=== PATIENT | male | born 1985 | race Asian ===

== ENCOUNTER 2017-01-27 11:33 | Emergency (ER) | payer MEDICAID, OTHER ==
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
--- NOTE | 2017-01-27 13:30 | CT Preliminary Report ---
Exam: CT HEAD W/O IMPRESSION: 1. 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 2. Normal exam. [facility] SITE ID: [id number]
[2017-01-27 13:44] VITALS: BP 115/72
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
--- NOTE | 2017-01-27 13:51 | XRAY Preliminary Report ---
Exam: XR LUMBAR SPINE 2 VIEW IMPRESSION: 1. Old wedging thoracolumbar junction. 2. No acute bony abnormality. 2. Mild degenerative changes L5-S1. [facility] SITE ID: [id number]
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
== END 2017-01-27 15:09 | disposition home or self-care (01) ==
LOC: ED 11:33
DX: S39.012A Strain of muscle, fascia and tendon of lower back, initial encounter (principal); V43.52XA Car driver injured in collision with other type car in traffic accident, initial encounter; Y92.488 Other paved roadways as the place of occurrence of the external cause; F17.200 Nicotine dependence, unspecified, uncomplicated
CPT/HCPCS: 70450; 72100; 99283

== ENCOUNTER 2017-09-30 16:15 | Outpatient (CLI) | payer MEDICAID ==
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
== END 2017-09-30 16:16 | disposition home or self-care (01) ==
LOC: DI.N 16:15
PROVIDERS: ATTEND Nurse Practitioner
DX: M54.42 Lumbago with sciatica, left side (principal); S39.012A Strain of muscle, fascia and tendon of lower back, initial encounter
CPT/HCPCS: 72100

== ENCOUNTER 2017-10-14 21:43 | Emergency (ER) | payer MEDICAID ==
[2017-10-14] MEDS ORDERED: SODIUM CHLORIDE 0.9% 1,000 ML IV ONE ×3 (22:52→23:50)
[2017-10-14 23:05] LABS: BASOPHILS % (AUTO) 0.3 %; EOSINOPHILS % (AUTO) 0.2 %; HGB - HEMOGLOBIN 16.2 g/dL (14.0-18.0); LYMPHOCYTES # (AUTO) 1.3 10^3/uL (1.5-3.5); LYMPHOCYTES % (AUTO) 12.5 %; MEAN CORPUSCULAR HEMOGLOBIN 31.1 pg (27.0-31.0); MEAN CORPUSCULAR HGB CONC 35.3 g/dL (32.0-36.0); MONOCYTES # (AUTO) 0.4 10^3/uL (0.0-1.0); MONOCYTES % (AUTO) 3.9 %; NEUTROPHILS # (AUTO) 8.7 10^3/uL (1.5-6.6); NEUTROPHILS % (AUTO) 83.1 %; PLT - PLATELET COUNT 230 10^3/uL (130-450); RED BLOOD COUNT 5.22 10^6/uL (4.70-6.10); RED CELL DISTRIBUTION WIDTH 12.2 % (12.0-15.0); WHITE BLOOD COUNT 10.5 x10^3/uL (4.8-10.8)
[2017-10-14 23:23] LABS: ALBUMIN 4.2 g/dL (3.2-5.5); ALBUMIN/GLOBULIN RATIO 1.5 (1.0-2.2); BILIRUBIN,TOTAL 2.3 mg/dL (0.2-1.0); MAGNESIUM 2.1 mg/dL (1.7-2.8); PHOSPHORUS 3.3 mg/dL (2.5-4.6)
[2017-10-14] MEDS ORDERED: ONDANSETRON 4 MG/2 ML VIAL IVP STA (23:29)
[2017-10-14] MEDS ORDERED: MORPHINE 10 MG/ML VIAL IVP STA (23:49)
[2017-10-15] MEDS ORDERED: IOPAMIDOL-300 100 ML VIAL ONE (00:26)
[2017-10-15] MEDS ORDERED: IOPAMIDOL-300 100 ML VIAL IVP ONE (00:39)
--- NOTE | 2017-10-15 01:02 | ED Physician Documentation ---
History of Present Illness - Stated complaint Stated Complaint: VOMITTING/SHAKING - Chief complaint Chief Complaint: Abd Pain - History obtained from History obtained from: Patient - Additonal information Additional information: 32-year-old male presents to the emergency department with increasing episodes of lower abdominal pain, nausea, vomiting and diarrhea. The patient's symptoms have progressively worsened over the past 7 days. Symptoms are described as moderate. No relieving factors. No blood in the vomit or stools. No recent travel or antibiotic usage or consumption of of water. No radiation of the symptoms. No relieving factors. No other associated symptoms. No sick contacts Review of Systems Constitutional: reports: Chills, Fatigue. denies: Fever Eyes: denies: Decreased vision Ears: denies: Ear pain Nose: denies: Congestion Throat: denies: Sore throat Cardiac: denies: Chest pain / pressure Respiratory: denies: Dyspnea GI: reports: Abdominal Pain, Nausea, Vomiting, Diarrhea : denies: Dysuria Skin: denies: Rash Musculoskeletal: denies: Neck pain Neurologic: denies: Generalized weakness Immunocompromised: denies: Immunocompromised, Chemotherapy PD PAST MEDICAL HISTORY - Past Surgical History Past Surgical History: Yes HEENT: Tonsil/Adenoidectomy - Present Medications Home Medications: Ambulatory Orders Medication Instructions Recorded Confirmed Amox/Clav 875/125 [Augmentin] 1 each PO Q12H #20 tablet 10/15/17 Famotidine [Pepcid] 20 mg PO BID #30 tablet 10/15/17 Hydrocodone/Acetaminophen 1 - 2 each PO Q6H PRN #14 tablet 10/15/17 [Hydrocodon-Acetaminophen 5-325] Ondansetron Odt [Zofran] 4 mg TL Q6H PRN #10 tablet 10/15/17 - Allergies Allergies/Adverse Reactions: Allergies Allergy/AdvReac Type Severity Reaction Status Date / Time bee venom protein (honey bee) Allergy Anaphylaxis Verified 10/14/17 21:53 - Social History Does the pt smoke?: Yes Smoking Status: Current every day smoker Does the pt drink ETOH?: No Does the pt have substance abuse?: Yes - Immunizations Immunizations are current?: Yes PD ED PE NORMAL - General General: Alert and oriented X 3, No acute distress - HEENT HEENT: Atraumatic, PERRL, EOMI, Ears normal - Neck Neck: Supple, no meningeal sign - Cardiac Cardiac: RRR, Strong equal pulses - Respiratory Respiratory: No respiratory distress, Clear bilaterally - Derm Derm: Normal color - Extremities Extremities: No deformity, No edema - Neuro Neuro: Alert and oriented X 3, Normal speech - Psych Psych: Normal mood PD ED PE EXPANDED - Abdomen Abdomen: Tender to palpation, Generalized/diffuse. No: Rebound, Guarding Results - Vitals Vitals: Vital Signs - 24 hr 10/14/17 10/15/17 10/15/17 21:51 00:05 01:20 Temperature 37.1 C 37.5 C Heart Rate 65 57 L 56 L Respiratory 16 17 16 Rate Blood Pressure 139/88 H 109/53 L 141/77 H O2 Saturation 100 100 99 Oxygen O2 Source Room air - Labs Labs: Laboratory Tests 10/14/17 10/14/17 23:01 23:01 WBC 10.5 RBC 5.22 Hgb 16.2 Hct 46.0 MCV 88.0 MCH 31.1 H MCHC 35.3 RDW 12.2 Plt Count 230 MPV 7.0 L Neut # (Auto) 8.7 H Lymph # (Auto) 1.3 L Greer # (Auto) 0.4 Eos # (Auto) 0.0 Baso # (Auto) 0.0 Absolute Nucleated RBC 0.00 Nucleated RBC % 0.0 Sodium 135 Potassium 4.0 Chloride 99 L Carbon Dioxide 28 Anion Gap 8.0 BUN 18 Creatinine 1.0 Estimated GFR (MDRD) 86 L Glucose 118 H Calcium 9.0 Phosphorus 3.3 Magnesium 2.1 Total Bilirubin 2.3 H AST 19 ALT 13 Alkaline Phosphatase 68 Total Protein 7.0 Albumin 4.2 Globulin 2.8 Albumin/Globulin Ratio 1.5 Lipase 42 - Rads (name of study) CT ABD/PELVIS Radiology: Final report received (1. Hemic: Is collapsed and appears mildly thickened. This may simply represent nondistention. Very mild colitis also possible.) PD MEDICAL DECISION MAKING - ED course ED course: The patient will be treated as an outpatient, I recommended follow-up with primary care for referral to GI. I discussed warning signs and recommended returning to the emergency department immediately for worsening or concerns. The patient's workup does not reveal any acute abnormality that would necessitate admission to the hospital or acute surgical consultation. - Sepsis Event Vital Signs: Vital Signs - 24 hr 10/14/17 10/15/17 10/15/17 21:51 00:05 01:20 Temperature 37.1 C 37.5 C Heart Rate 65 57 L 56 L Respiratory 16 17 16 Rate Blood Pressure 139/88 H 109/53 L 141/77 H O2 Saturation 100 100 99 Oxygen O2 Source Room air Departure - Departure Disposition: 01 Home, Self Care Clinical Impression: Colitis Abdominal pain Qualifiers: Abdominal location: lower abdomen, unspecified Qualified Code(s): R10.30 - Lower abdominal pain, unspecified Condition: Good Instructions: Abdominal Pain Follow-Up: Carol Johnston DNP [Primary Care Provider] - Within 1 week (Please ask your primary care to possibly arrange for an outpatient GI referral) Prescriptions: Amox/Clav 875/125 [Augmentin] 1 each PO Q12H #20 tablet Famotidine [Pepcid] 20 mg PO BID #30 tablet Hydrocodone/Acetaminophen [Hydrocodon-Acetaminophen 5-325] 1 - 2 each PO Q6H PRN #14 tablet PRN Reason: pain Ondansetron Odt [Zofran] 4 mg TL Q6H PRN #10 tablet PRN Reason: Nausea / Vomiting Comments: Please return to the emergency department for worsening symptoms or any concerns
--- NOTE | 2017-10-15 01:11 | CT Report ---
Procedure Date: 10/15/2017 Accession Number: [id number] / [id number] Procedure: CT - Abdomen/Pelvis W/ CPT Code: FULL RESULT: EXAM: CT ABDOMEN AND PELVIS EXAM DATE: 10/15/2017 12:42 AM. CLINICAL HISTORY: Abdominal pain. COMPARISONS: None. TECHNIQUE: Routine helical CT imaging was performed through the abdomen and pelvis. IV contrast: ISOVUE 300 100mL. Enteric contrast: No. Reconstructions: Coronal and sagittal. In accordance with CT protocol optimization, one or more of the following dose reduction techniques were utilized for this exam: automated exposure control, adjustment of mA and/or KV based on patient size, or use of iterative reconstructive technique. FINDINGS: Lung Bases: Unremarkable. Liver: Normal. No masses. Gallbladder/Bile Ducts: Unremarkable. Spleen: Normal. Pancreas: Normal. Adrenal Glands: Normal. Kidneys: Normal. No masses or hydronephrosis. Peritoneal Cavity/Bowel: No bowel obstruction seen. No diverticulitis. Left hemicolon is mostly collapsed and appears mildly thickened. No free air or free fluid. No lymphadenopathy. Appendix is not optimally seen. No evidence of appendicitis. Pelvic Organs: Normal. The bladder and visualized pelvic organs are within normal limits. Vasculature: No aneurysms or other significant abnormality. Bones: No significant abnormality. Other: None. IMPRESSION: 1. Left hemicolon is collapsed and appears mildly thickened. This may simply represent nondistention. Very mild colitis also possible. 2. Appendix is not optimally seen. No evidence of appendicitis. 3. No bowel obstruction seen. 4. No free air or free fluid. [facility]
[2017-10-15] MEDS ORDERED: KETOROLAC 60 MG/2 ML VIAL IVP STA (01:40)
[2017-10-15] MEDS ORDERED: AMOX/CLAV 875 MG/125 MG TABLET PO STA (01:40)
[2017-10-15] MEDS ORDERED: FAMOTIDINE 20 MG in SODIUM CHLORIDE 0.9% 50 ML IV ONE (01:40)
[2017-10-15] MEDS ORDERED: ONDANSETRON 4 MG/2 ML VIAL IVP STA (01:40)
[2017-10-15] MEDS ORDERED: SODIUM CHLORIDE 0.9% 50 ML IV ONE (01:59)
[2017-10-15 02:34] VITALS: BP 115/70
== END 2017-10-15 02:45 | disposition home or self-care (01) ==
LOC: ED 21:43
DX: K52.9 Noninfective gastroenteritis and colitis, unspecified (principal); R10.30 Lower abdominal pain, unspecified; F17.200 Nicotine dependence, unspecified, uncomplicated
CPT/HCPCS: 36415; 74177; 80053; 83690; 83735; 84100; 85025; 96361; 96365; 96375; 96376; 99283; 99284; A9270; J7040; Q9967

== ENCOUNTER 2017-11-03 15:00 | Outpatient (CLI) | payer MEDICAID ==
[2017-11-03 18:53] LABS: BASOPHILS # (AUTO) 0.1 10^3/uL (0.0-0.1); BASOPHILS % (AUTO) 0.4 %; EOSINOPHILS # (AUTO) 0.1 10^3/uL (0.0-0.7); EOSINOPHILS % (AUTO) 0.9 %; HGB - HEMOGLOBIN 16.2 g/dL (14.0-18.0); LYMPHOCYTES # (AUTO) 3.5 10^3/uL (1.5-3.5); LYMPHOCYTES % (AUTO) 28.9 %; MEAN CORPUSCULAR HEMOGLOBIN 30.8 pg (27.0-31.0); MEAN CORPUSCULAR HGB CONC 33.9 g/dL (32.0-36.0); MEAN PLATELET VOLUME 7.6 fL (7.4-11.4); MONOCYTES # (AUTO) 0.9 10^3/uL (0.0-1.0); MONOCYTES % (AUTO) 7.2 %; NEUTROPHILS # (AUTO) 7.6 10^3/uL (1.5-6.6); NEUTROPHILS % (AUTO) 62.6 %; PLT - PLATELET COUNT 253 10^3/uL (130-450); RED BLOOD COUNT 5.26 10^6/uL (4.70-6.10); RED CELL DISTRIBUTION WIDTH 12.9 % (12.0-15.0); WHITE BLOOD COUNT 12.2 x10^3/uL (4.8-10.8)
[2017-11-03 19:52] LABS: ALBUMIN 4.1 g/dL (3.2-5.5); ALBUMIN/GLOBULIN RATIO 1.4 (1.0-2.2); BILIRUBIN,TOTAL 2.2 mg/dL (0.2-1.0); CALCIUM 9.2 mg/dL (8.5-10.3); CREATININE 1.1 mg/dL (0.6-1.2); TOTAL PROTEIN 7.1 g/dL (6.7-8.2)
== END 2017-11-03 15:01 | disposition home or self-care (01) ==
LOC: LAB.N 15:00
PROVIDERS: ATTEND Nurse Practitioner
DX: R63.4 Abnormal weight loss (principal); E86.0 Dehydration; K52.9 Noninfective gastroenteritis and colitis, unspecified
CPT/HCPCS: 36415; 80053; 85025

== ENCOUNTER 2017-12-20 16:19 | Emergency (ER) | payer MEDICAID ==
[2017-12-20] MEDS ORDERED: HYOSCYAMINE SL 0.125 MG TABLET SL STA (17:21)
[2017-12-20] MEDS ORDERED: ONDANSETRON 4 MG/2 ML VIAL IVP STA (17:21)
[2017-12-20] MEDS ORDERED: MORPHINE 2 MG/ML CARPUJECT IVP STA (17:21)
[2017-12-20] MEDS ORDERED: SODIUM CHLORIDE 0.9% 1,000 ML IV ONE (17:21)
[2017-12-20 17:26] LABS: BASOPHILS # (AUTO) 0.1 10^3/uL (0.0-0.1); BASOPHILS % (AUTO) 0.6 %; EOSINOPHILS % (AUTO) 0.4 %; HGB - HEMOGLOBIN 17.6 g/dL (14.0-18.0); LYMPHOCYTES # (AUTO) 1.1 10^3/uL (1.5-3.5); LYMPHOCYTES % (AUTO) 9.1 %; MEAN CORPUSCULAR HEMOGLOBIN 31.3 pg (27.0-31.0); MEAN CORPUSCULAR HGB CONC 34.8 g/dL (32.0-36.0); MEAN PLATELET VOLUME 7.3 fL (7.4-11.4); MONOCYTES # (AUTO) 0.3 10^3/uL (0.0-1.0); MONOCYTES % (AUTO) 2.7 %; NEUTROPHILS # (AUTO) 10.3 10^3/uL (1.5-6.6); NEUTROPHILS % (AUTO) 87.2 %; PLT - PLATELET COUNT 262 10^3/uL (130-450); RED BLOOD COUNT 5.62 10^6/uL (4.70-6.10); RED CELL DISTRIBUTION WIDTH 12.8 % (12.0-15.0); WHITE BLOOD COUNT 11.8 x10^3/uL (4.8-10.8)
[2017-12-20 17:41] LABS: ALBUMIN 5.1 g/dL (3.2-5.5); ALBUMIN/GLOBULIN RATIO 1.8 (1.0-2.2); BILIRUBIN,TOTAL 2.6 mg/dL (0.2-1.0); CALCIUM 9.6 mg/dL (8.5-10.3); CREATININE 1.1 mg/dL (0.6-1.2); TOTAL PROTEIN 7.9 g/dL (6.7-8.2)
[2017-12-20] MEDS ORDERED: KETOROLAC 60 MG/2 ML VIAL IVP STA (17:43)
--- NOTE | 2017-12-20 18:21 | ED Physician Documentation ---
PD HPI CHEST PAIN - Stated complaint Stated Complaint: VOMITING - Chief complaint Chief Complaint: Abd Pain - History obtained from History obtained from: Patient, Family - History of Present Illness Timing - details: Gradual onset Pain level max: 8 Pain level now: 8 Quality: Aching, Pain Associated symptoms: No: Shortness of air, Diaphoresis, General Weakness Recently seen: Not recently seen - Additional information Additional information: Patient is a 32 year old male who presents to the emergency room with c/o significant abdominal pain. States that he has epigastric pain. Was diagnosed with H.pylori from his endoscopy 3 weeks ago and has not started treatment for it yet. States that he has vomiting and diarrhea. His states that he is "not acting like his normal self". States he has a colonoscopy scheduled on 12/24/2017. Review of Systems Ten Systems: 10 systems reviewed and negative Constitutional: denies: Fever, Chills Ears: denies: Ear pain Nose: denies: Rhinorrhea / runny nose, Congestion Throat: denies: Sore throat Cardiac: denies: Chest pain / pressure Respiratory: denies: Cough GI: reports: Abdominal Pain, Nausea, Vomiting. denies: Constipation, Diarrhea, Hematemesis, Bloody / black stool Skin: denies: Rash Musculoskeletal: denies: Neck pain, Back pain Neurologic: denies: Focal weakness, Numbness, Headache PD PAST MEDICAL HISTORY - Past Medical History Past Medical History: Yes Cardiovascular: None Respiratory: None Neuro: None Endocrine/Autoimmune: None GI: GERD, Ulcerative colitis : None HEENT: None Psych: None Musculoskeletal: None Derm: None - Past Surgical History Past Surgical History: Yes HEENT: Tonsil/Adenoidectomy - Present Medications Home Medications: Ambulatory Orders Medication Instructions Recorded Confirmed Famotidine [Pepcid] 20 mg PO BID #30 tablet 10/15/17 11/14/17 Ciprofloxacin HCl [Cipro] 500 mg ORAL BID 11/14/17 11/14/17 Ondansetron [Ondansetron Odt] 8 mg ORAL Q8H PRN 11/14/17 11/14/17 Sucralfate 1 g ORAL QID 11/14/17 11/14/17 Hydrocodone/Acetaminophen 1 - 2 each PO Q6H PRN #14 tablet 12/20/17 [Hydrocodon-Acetaminophen 5-325] Hyoscyamine Sulfate [Levsin-Sl] 0.125 mg SL Q6H PRN #10 tab.subl 12/20/17 Promethazine [Phenergan] 25 mg PO Q6H PRN #10 tab 12/20/17 - Allergies Allergies/Adverse Reactions: Allergies Allergy/AdvReac Type Severity Reaction Status Date / Time bee venom protein (honey bee) Allergy Anaphylaxis Verified 11/14/17 14:40 - Social History Does the pt smoke?: Yes Smoking Status: Current every day smoker Does the pt drink ETOH?: No Does the pt have substance abuse?: Yes - Immunizations Immunizations are current?: Yes - POLST Patient has POLST: No PD ED PE NORMAL - Vitals Vital signs reviewed: Yes - General General: Alert and oriented X 3, No acute distress, Well developed/nourished - HEENT HEENT: Atraumatic, PERRL - Neck Neck: Supple, no meningeal sign - Cardiac Cardiac: RRR, Strong equal pulses - Respiratory Respiratory: No respiratory distress, Clear bilaterally - Abdomen Abdomen: Soft, Non distended, Other (Tender to palpation epigastric without peritoneal signs) - Back Back: No spinal TTP - Derm Derm: Warm and dry - Neuro Neuro: Alert and oriented X 3, Normal speech - Psych Psych: Normal mood, Normal affect Results - Vitals Vitals: Vital Signs - 24 hr 12/20/17 12/20/17 12/20/17 16:26 19:08 19:43 Temperature 36.3 C L 37.1 C Heart Rate 59 L 52 L 56 L Respiratory 18 18 16 Rate Blood Pressure 129/90 H 116/70 127/85 H O2 Saturation 100 100 97 12/20/17 12/20/17 20:27 20:55 Temperature 36.5 C Heart Rate 74 59 L Respiratory 14 18 Rate Blood Pressure 116/81 H 125/57 L O2 Saturation 99 98 Oxygen O2 Source Room air - Labs Labs: Laboratory Tests 12/20/17 12/20/17 17:15 17:15 WBC 11.8 H RBC 5.62 Hgb 17.6 Hct 50.6 MCV 90.0 MCH 31.3 H MCHC 34.8 RDW 12.8 Plt Count 262 MPV 7.3 L Neut # (Auto) 10.3 H Lymph # (Auto) 1.1 L Dare # (Auto) 0.3 Eos # (Auto) 0.0 Baso # (Auto) 0.1 Absolute Nucleated RBC 0.01 Nucleated RBC % 0.1 Sodium 141 Potassium 4.5 Chloride 105 Carbon Dioxide 28 Anion Gap 8.0 BUN 13 Creatinine 1.1 Estimated GFR (MDRD) 77 L Glucose 130 H Calcium 9.6 Total Bilirubin 2.6 H AST 19 ALT 19 Alkaline Phosphatase 74 Total Protein 7.9 Albumin 5.1 Globulin 2.8 Albumin/Globulin Ratio 1.8 Lipase 30 PD MEDICAL DECISION MAKING - ED course Complexity details: reviewed results, re-evaluated patient, considered differential, d/w patient, d/w family ED course: Patient is a 32-year-old male who presents to the emergency department with ongoing abdominal pain. Feels better after pain medication. He also has had vomiting feels better after IV fluids and Zofran. Also given a dose of Phenergan. He would like to go home at this time. Will prescribe pain medication and nausea medication for home. He has a colonoscopy scheduled on Friday with his GI doctor. We will have him follow-up closely with his doctor for further care. Also recommend he start the H. pylori treatment as prescribed by his GI doctor. Abdomen is soft, nontender nondistended on serial exam. Tolerating p.o. without difficulty. Patient and family counseled regarding signs and symptoms for which I believe and urgent re-evaluation would be necessary. Patient with good understanding of and agreement to plan and is comfortable going home at this time This document was made in part using voice recognition software. While efforts are made to proofread this document, sound alike and grammatical errors may occur. - Sepsis Event Vital Signs: Vital Signs - 24 hr 12/20/17 12/20/17 12/20/17 16:26 19:08 19:43 Temperature 36.3 C L 37.1 C Heart Rate 59 L 52 L 56 L Respiratory 18 18 16 Rate Blood Pressure 129/90 H 116/70 127/85 H O2 Saturation 100 100 97 12/20/17 12/20/17 20:27 20:55 Temperature 36.5 C Heart Rate 74 59 L Respiratory 14 18 Rate Blood Pressure 116/81 H 125/57 L O2 Saturation 99 98 Oxygen O2 Source Room air Departure - Departure Disposition: 01 Home, Self Care Clinical Impression: Abdominal pain Qualifiers: Abdominal location: generalized Qualified Code(s): R10.84 - Generalized abdominal pain Vomiting Qualifiers: Vomiting type: unspecified Vomiting Intractability: non-intractable Nausea presence: with nausea Qualified Code(s): R11.2 - Nausea with vomiting, unspecified Condition: Good Instructions: ED Abdominal Pain Unkn Cause Follow-Up: Carol Johnston DNP [Primary Care Provider] - Within 1 week Prescriptions: Hydrocodone/Acetaminophen [Hydrocodon-Acetaminophen 5-325] 1 - 2 each PO Q6H PRN #14 tablet PRN Reason: pain Hyoscyamine Sulfate [Levsin-Sl] 0.125 mg SL Q6H PRN #10 tab.subl PRN Reason: Abdominal Pain Promethazine [Phenergan] 25 mg PO Q6H PRN #10 tab PRN Reason: Nausea / Vomiting Comments: Return if you worsen. Follow-up with your doctor this week for further care. It is importantly follow-up for your colonoscopy. Your laboratory testing is normal today. Do not drink alcohol or drive while on narcotic pain medicine. Note that many narcotic pain relievers also contain tylenol/acetaminophen. Please ensure that your total dose of acetaminophen from all sources does not exceed 3 grams (3000mg) per day. You may constipated on this medication, take a stool softener such as "Colace" twice a day while you are on it. Also recommend a nbwq-mxw-hfjkjml laxative such as senna or MiraLAX any day that you do not have a bowel movement. If you received narcotic pain medication in the emergency department, do not drive or operate machinery for the next 24 hours. Discharge Date/Time: 12/20/17 20:55
[2017-12-20] MEDS ORDERED: HYDROcod/ACETAM 5/325 MG TABLET PO STA (19:28)
[2017-12-20] MEDS ORDERED: PROMETHAZINE INJ 25 MG in SODIUM CHLORIDE 0.9% 50 ML IV STA (19:47)
[2017-12-20 20:56] VITALS: BP 125/57
== END 2017-12-20 20:55 | disposition home or self-care (01) ==
LOC: ED 16:19
DX: R10.84 Generalized abdominal pain (principal); R11.2 Nausea with vomiting, unspecified; F17.200 Nicotine dependence, unspecified, uncomplicated
CPT/HCPCS: 36415; 80053; 83690; 85025; 96361; 96365; 96375; 99283; A9270; J7040

== ENCOUNTER 2018-04-21 15:08 | Emergency (ER) | payer MEDICAID ==
[2018-04-21] MEDS ORDERED: ONDANSETRON 4 MG/2 ML VIAL IVP STA (15:52)
[2018-04-21] MEDS ORDERED: SODIUM CHLORIDE 0.9% 2,000 ML IV ONE (15:52)
[2018-04-21] MEDS ORDERED: MAG HYDROX/AL HYDROX/SIMETH 30 ML UDC PO STA (15:53)
[2018-04-21 16:03] LABS: BASOPHILS % (AUTO) 0.2 %; EOSINOPHILS # (AUTO) 0.1 10^3/uL (0.0-0.7); EOSINOPHILS % (AUTO) 0.3 %; HGB - HEMOGLOBIN 18.4 g/dL (14.0-18.0); LYMPHOCYTES # (AUTO) 2.1 10^3/uL (1.5-3.5); LYMPHOCYTES % (AUTO) 10.6 %; MEAN CORPUSCULAR HEMOGLOBIN 30.4 pg (27.0-31.0); MEAN CORPUSCULAR HGB CONC 34.4 g/dL (32.0-36.0); MEAN CORPUSCULAR VOLUME 88.6 fL (80.0-94.0); MEAN PLATELET VOLUME 7.1 fL (7.4-11.4); MONOCYTES # (AUTO) 1.6 10^3/uL (0.0-1.0); MONOCYTES % (AUTO) 7.9 %; NEUTROPHILS # (AUTO) 16.2 10^3/uL (1.5-6.6); PLT - PLATELET COUNT 254 10^3/uL (130-450); RED BLOOD COUNT 6.05 10^6/uL (4.70-6.10); RED CELL DISTRIBUTION WIDTH 12.5 % (12.0-15.0); WHITE BLOOD COUNT 19.9 x10^3/uL (4.8-10.8)
[2018-04-21 16:14] LABS: ALBUMIN 4.7 g/dL (3.2-5.5); ALBUMIN/GLOBULIN RATIO 1.6 (1.0-2.2); BILIRUBIN,TOTAL 2.6 mg/dL (0.2-1.0); CALCIUM 9.5 mg/dL (8.5-10.3); CREATININE 1.1 mg/dL (0.6-1.2); TOTAL PROTEIN 7.6 g/dL (6.7-8.2)
[2018-04-21] MEDS ORDERED: IOVERSOL 320 100 ML VIAL IVP ONE ×2 (16:27→16:43)
--- NOTE | 2018-04-21 17:07 | CT Report ---
Reason: ABd pain Procedure Date: 04/21/2018 Accession Number: [id number] / [id number] Procedure: CT - Abdomen/Pelvis W/ CPT Code: FULL RESULT: EXAM: CT ABDOMEN AND PELVIS EXAM DATE: 04/21/2018 04:45 PM. CLINICAL HISTORY: ABd pain. COMPARISONS: ABDOMEN/PELVIS W/ 10/15/2017 12:30 AM. TECHNIQUE: Routine helical CT imaging was performed through the abdomen and pelvis. IV contrast: [id number] 90ML. Enteric contrast: No. Reconstructions: Coronal and sagittal. In accordance with CT protocol optimization, one or more of the following dose reduction techniques were utilized for this exam: automated exposure control, adjustment of mA and/or KV based on patient size, or use of iterative reconstructive technique. FINDINGS: Lung Bases: Unremarkable. Liver: Small cyst or hemangioma. Otherwise unremarkable. Gallbladder/Bile Ducts: Unremarkable. Spleen: Normal. Pancreas: Normal. Adrenal Glands: Normal. Kidneys: High density material in the left proximal ureter not present on previous exam, most likely early excretion of contrast. Otherwise unremarkable. No hydronephrosis. Peritoneal Cavity/Bowel: Normal. No free fluid, free air or adenopathy. No masses or acute inflammatory process. Unremarkable region of the appendix. Pelvic Organs: Normal. The bladder and visualized pelvic organs are within normal limits. Vasculature: No aneurysms or other significant abnormality. Bones: Sacralization of L5. Other: None. IMPRESSION: Incidental findings as noted. No acute disease. [facility]
[2018-04-21 18:01] VITALS: BP 126/70
--- NOTE | 2018-04-21 19:01 | ED Physician Documentation ---
History of Present Illness - Stated complaint Stated Complaint: DEHYDRATION - Chief complaint Chief Complaint: Abd Pain - History obtained from History obtained from: Patient - History of Present Illness Timing: How many weeks ago (6) Pain level max: 5 Pain level now: 3 Severity Comments: Mild Quality: dull Radiates to: non- Improved by: nothing Worsened by: nothing Associated symptoms: Nausea and vomiting Review of Systems Ten Systems: 10 systems reviewed and negative Constitutional: reports: Reviewed and negative Eyes: reports: Reviewed and negative Ears: reports: Reviewed and negative Nose: reports: Reviewed and negative Throat: reports: Reviewed and negative Cardiac: reports: Reviewed and negative Respiratory: reports: Reviewed and negative GI: reports: Reviewed and negative : reports: Reviewed and negative Skin: reports: Reviewed and negative Musculoskeletal: reports: Reviewed and negative Neurologic: reports: Reviewed and negative Psychiatric: reports: Reviewed and negative Endocrine: reports: Reviewed and negative Immunocompromised: reports: Reviewed and negative PD PAST MEDICAL HISTORY - Past Medical History Cardiovascular: None Respiratory: None Neuro: None Endocrine/Autoimmune: None GI: GERD, Ulcerative colitis, Other : None HEENT: None Psych: None Musculoskeletal: None Derm: None Other Past Medical History: H. [place] - Past Surgical History Past Surgical History: Yes HEENT: Tonsil/Adenoidectomy Other past surgical history: Reviewed and not pertinent - Present Medications Home Medications: Ambulatory Orders Medication Instructions Recorded Confirmed Famotidine [Pepcid] 20 mg PO BID #30 tablet 10/15/17 11/14/17 Ciprofloxacin HCl [Cipro] 500 mg ORAL BID 11/14/17 11/14/17 Ondansetron [Ondansetron Odt] 8 mg ORAL Q8H PRN 11/14/17 11/14/17 Sucralfate 1 g ORAL QID 11/14/17 11/14/17 Hydrocodone/Acetaminophen 1 - 2 each PO Q6H PRN #14 tablet 12/20/17 [Hydrocodon-Acetaminophen 5-325] Hyoscyamine Sulfate [Levsin-Sl] 0.125 mg SL Q6H PRN #10 tab.subl 12/20/17 Promethazine [Phenergan] 25 mg PO Q6H PRN #10 tab 12/20/17 Ondansetron Odt [Zofran] 4 mg TL Q6H PRN #20 tablet 04/21/18 - Allergies Allergies/Adverse Reactions: Allergies Allergy/AdvReac Type Severity Reaction Status Date / Time bee venom protein (honey bee) Allergy Anaphylaxis Verified 04/21/18 15:16 - Living Situation Living Situation: reports: With family Living Arrangement: reports: At home - Social History Does the pt smoke?: Yes Smoking Status: Current every day smoker Does the pt drink ETOH?: No Does the pt have substance abuse?: Yes - Family History Family history: reports: Other (Reviewed and not pertinent) - Immunizations Immunizations are current?: Yes - POLST Patient has POLST: No PD ED PE NORMAL - Vitals Vital signs reviewed: Yes - General General: Alert and oriented X 3, No acute distress - HEENT HEENT: PERRL - Neck Neck: Supple, no meningeal sign - Cardiac Cardiac: RRR, No murmur - Respiratory Respiratory: Clear bilaterally - Abdomen Abdomen: Normal bowel sounds, Soft, Non tender, Non distended - Derm Derm: Warm and dry - Extremities Extremities: No deformity - Neuro Neuro: Alert and oriented X 3 - Psych Psych: Normal mood, Normal affect Results - Vitals Vitals: Vital Signs - 24 hr 04/21/18 04/21/18 15:11 17:59 Temperature 36.9 C Heart Rate 86 57 L Respiratory 15 12 Rate Blood Pressure 129/78 126/70 O2 Saturation 99 99 Oxygen O2 Source Room air - Labs Labs: Laboratory Tests 04/21/18 04/21/18 15:50 15:50 WBC 19.9 H RBC 6.05 Hgb 18.4 H Hct 53.6 H MCV 88.6 MCH 30.4 MCHC 34.4 RDW 12.5 Plt Count 254 MPV 7.1 L Neut # (Auto) 16.2 H Lymph # (Auto) 2.1 [place] # (Auto) 1.6 H Eos # (Auto) 0.1 Baso # (Auto) 0.0 Absolute Nucleated RBC 0.04 Nucleated RBC % 0.2 Sodium 134 L Potassium 3.5 Chloride 95 L Carbon Dioxide 28 Anion Gap 11.0 BUN 26 H Creatinine 1.1 Estimated GFR (MDRD) 77 L Glucose 105 H Calcium 9.5 Total Bilirubin 2.6 H AST 16 ALT 14 Alkaline Phosphatase 73 Total Protein 7.6 Albumin 4.7 Globulin 2.9 Albumin/Globulin Ratio 1.6 Lipase 41 - Rads (name of study) CT Abd Pelvis w contrast Radiology: Final report received (No acute findings) PD MEDICAL DECISION MAKING - ED course Complexity details: reviewed old records, reviewed results, re-evaluated patient, considered differential, d/w patient, d/w family ED course: 32-year-old male with abdominal pain, nausea, vomiting, dehydration. Labs consistent with dehydration. Patient given 1 L IV fluids and refused second liter of IV fluids. Patient discharged with nausea medication and will follow- up with PCP as scheduled. No acute cause of patient's dehydration is currently identified. Departure - Departure Disposition: 01 Home, Self Care Clinical Impression: Dehydration Vomiting Qualifiers: Vomiting type: unspecified Vomiting Intractability: non-intractable Nausea presence: with nausea Qualified Code(s): R11.2 - Nausea with vomiting, unspecified Condition: Good Instructions: ED Dehydration Ch, ED Nausea Vomiting Follow-Up: Carol Johnston DNP [Primary Care Provider] - Prescriptions: Ondansetron Odt [Zofran] 4 mg TL Q6H PRN #20 tablet PRN Reason: Nausea / Vomiting Comments: Follow up with your PCP within 24-48 hours. Return with worsening symptoms. Hydrate w water and sports drinks. Discharge Date/Time: 04/21/18 19:11
== END 2018-04-21 19:11 | disposition home or self-care (01) ==
LOC: ED 15:08
DX: E86.0 Dehydration (principal); R11.2 Nausea with vomiting, unspecified; F17.200 Nicotine dependence, unspecified, uncomplicated
CPT/HCPCS: 36415; 74177; 80053; 83690; 85025; 96361; 96374; 99283; 99284; A9270; Q9967

== ENCOUNTER 2018-04-23 08:30 | Outpatient (CLI) | payer MEDICAID ==
[2018-04-23 19:40] LABS: H. PYLORIS ANTIGEN STL NEGATIVE (Negative)
== END 2018-04-23 08:31 | disposition home or self-care (01) ==
LOC: LAB.R 08:30
PROVIDERS: ATTEND Nurse Practitioner
DX: R53.83 Other fatigue (principal); R63.4 Abnormal weight loss; E86.0 Dehydration; R19.7 Diarrhea, unspecified
CPT/HCPCS: 87045; 87046; 87177; 87209; 87338; 87493

== ENCOUNTER 2018-09-09 08:00 | Outpatient (CLI) | payer MEDICAID | END 2018-09-09 23:59 | disposition home or self-care (01) | LOC: LAB.R 08:00 | PROVIDERS: ATTEND Physician Assistant Medical | DX: R10.9 Unspecified abdominal pain (principal) | CPT/HCPCS: 83013 ==

== ENCOUNTER 2018-09-18 08:00 | Outpatient (CLI) | payer MEDICAID ==
[2018-09-18 14:04] LABS: BASOPHILS % (AUTO) 0.4 %; EOSINOPHILS # (AUTO) 0.1 10^3/uL (0.0-0.7); EOSINOPHILS % (AUTO) 1.3 %; HGB - HEMOGLOBIN 15.8 g/dL (14.0-18.0); LYMPHOCYTES % (AUTO) 29.9 %; MEAN CORPUSCULAR HEMOGLOBIN 30.6 pg (27.0-31.0); MEAN CORPUSCULAR HGB CONC 33.9 g/dL (32.0-36.0); MEAN CORPUSCULAR VOLUME 90.3 fL (80.0-94.0); MEAN PLATELET VOLUME 7.9 fL (7.4-11.4); MONOCYTES # (AUTO) 0.5 10^3/uL (0.0-1.0); MONOCYTES % (AUTO) 7.9 %; NEUTROPHILS # (AUTO) 4.1 10^3/uL (1.5-6.6); NEUTROPHILS % (AUTO) 60.5 %; PLT - PLATELET COUNT 215 10^3/uL (130-450); RED BLOOD COUNT 5.15 10^6/uL (4.70-6.10); RED CELL DISTRIBUTION WIDTH 13.2 % (12.0-15.0); WHITE BLOOD COUNT 6.7 x10^3/uL (4.8-10.8)
[2018-09-18 14:34] LABS: ALBUMIN 4.3 g/dL (3.2-5.5); BILIRUBIN,TOTAL 1.1 mg/dL (0.2-1.0); CALCIUM 9.1 mg/dL (8.5-10.3); CREATININE 0.8 mg/dL (0.6-1.2); TOTAL PROTEIN 6.5 g/dL (6.7-8.2)
[2018-09-18 19:53] LABS: HB2 TOTAL 16.5 g/dL; HEMOGLOBIN A1C 0.56 g/dL; HEMOGLOBIN A1C % 5.3 % (4.6-6.2)
== END 2018-09-18 23:59 | disposition home or self-care (01) ==
LOC: LAB.N 08:00
PROVIDERS: ATTEND Physician Assistant Medical
DX: R10.9 Unspecified abdominal pain (principal)
CPT/HCPCS: 36415; 80053; 81599; 82150; 83036; 83690; 84443; 85025

== ENCOUNTER 2019-05-24 10:37 | Emergency (ER) | payer MEDICAID ==
[2019-05-24 12:58] LABS: BASOPHILS % (AUTO) 0.2 %; HGB - HEMOGLOBIN 19.9 g/dL (14.0-18.0); LYMPHOCYTES # (AUTO) 1.2 10^3/uL (1.5-3.5); LYMPHOCYTES % (AUTO) 7.7 %; MEAN CORPUSCULAR HEMOGLOBIN 31.2 pg (27.0-31.0); MEAN CORPUSCULAR HGB CONC 34.8 g/dL (32.0-36.0); MEAN CORPUSCULAR VOLUME 89.7 fL (80.0-94.0); MEAN PLATELET VOLUME 9.1 fL (7.4-11.4); MONOCYTES # (AUTO) 0.6 10^3/uL (0.0-1.0); MONOCYTES % (AUTO) 4.2 %; NEUTROPHILS % (AUTO) 87.3 %; PLT - PLATELET COUNT 254 10^3/uL (130-450); RED BLOOD COUNT 6.38 10^6/uL (4.70-6.10); RED CELL DISTRIBUTION WIDTH 12.5 % (12.0-15.0); WHITE BLOOD COUNT 14.9 x10^3/uL (4.8-10.8)
[2019-05-24 13:13] LABS: ALBUMIN 5.4 g/dL (3.2-5.5); ALBUMIN/GLOBULIN RATIO 1.5 (1.0-2.2); BILIRUBIN,TOTAL 2.6 mg/dL (0.2-1.0); CALCIUM 10.7 mg/dL (8.5-10.3); CREATININE 1.6 mg/dL (0.6-1.2); TOTAL PROTEIN 9.1 g/dL (6.7-8.2)
[2019-05-24] MEDS ORDERED: SODIUM CHLORIDE 0.9% 1,000 ML IV ONE ×2 (14:05→16:02)
[2019-05-24] MEDS ORDERED: ONDANSETRON 4 MG/2 ML VIAL IVP STA (14:05)
--- NOTE | 2019-05-24 14:07 | ED Physician Documentation ---
PD HPI NVD - Stated complaint Stated Complaint: VOMTING/PX - Chief complaint Chief Complaint: Abd Pain - History obtained from History obtained from: Patient, Family - History of Present Illness Timing - onset: How many days ago (3) Timing - duration: Days (3) Timing - details: Gradual onset, Still present Associated symptoms: Abdominal pain Contributing factors: Other (unknown) Improved by: Vomiting Worsened by: Eating Similar symptoms before: Diagnosis (gastroenteritis) Recently seen: Not recently seen Review of Systems Constitutional: denies: Fever Eyes: denies: Decreased vision Ears: denies: Ear pain Nose: denies: Congestion Throat: denies: Sore throat Cardiac: denies: Chest pain / pressure, Palpitations Respiratory: denies: Dyspnea, Cough GI: reports: Abdominal Pain, Nausea, Vomiting : denies: Dysuria, Frequency Skin: denies: Rash PD PAST MEDICAL HISTORY - Past Medical History Past Medical History: Yes Cardiovascular: None Respiratory: None Neuro: None Endocrine/Autoimmune: None GI: GERD, Ulcerative colitis, Other : None HEENT: None Psych: None Musculoskeletal: None Derm: None - Past Surgical History Past Surgical History: Yes HEENT: Tonsil/Adenoidectomy - Present Medications Home Medications: Ambulatory Orders Medication Instructions Recorded Confirmed Famotidine [Pepcid] 20 mg PO BID #30 tablet 10/15/17 11/14/17 Ciprofloxacin HCl [Cipro] 500 mg ORAL BID 11/14/17 11/14/17 Ondansetron [Ondansetron Odt] 8 mg ORAL Q8H PRN 11/14/17 11/14/17 Sucralfate 1 g ORAL QID 11/14/17 11/14/17 Hydrocodone/Acetaminophen 1 - 2 each PO Q6H PRN #14 tablet 12/20/17 [Hydrocodon-Acetaminophen 5-325] Hyoscyamine Sulfate [Levsin-Sl] 0.125 mg SL Q6H PRN #10 tab.subl 12/20/17 Promethazine [Phenergan] 25 mg PO Q6H PRN #10 tab 12/20/17 Ondansetron Odt [Zofran] 4 mg TL Q6H PRN #20 tablet 04/21/18 Ondansetron Odt [Zofran] 4 mg TL Q6H PRN #10 tablet 05/24/19 - Allergies Allergies/Adverse Reactions: Allergies Allergy/AdvReac Type Severity Reaction Status Date / Time bee venom protein (honey bee) Allergy Anaphylaxis Verified 04/21/18 15:16 - Social History Does the pt smoke?: Yes Smoking Status: Current every day smoker Does the pt drink ETOH?: No Does the pt have substance abuse?: No - Immunizations Immunizations are current?: Yes - POLST Patient has POLST: No PD ED PE NORMAL - Vitals Vital signs reviewed: Yes (Hypertensive) - General General: Alert and oriented X 3, No acute distress, Well developed/nourished - HEENT HEENT: Atraumatic, PERRL, EOMI - Neck Neck: Supple, no meningeal sign, No bony TTP - Cardiac Cardiac: No murmur, Other (tach to 120 sitting up) - Respiratory Respiratory: No respiratory distress, Clear bilaterally - Abdomen Abdomen: Normal bowel sounds, Soft, Non distended, No organomegaly, Other (mild general tenderness) - Back Back: No CVA TTP, No spinal TTP - Derm Derm: Normal color, Warm and dry, No rash - Extremities Extremities: No deformity, Normal ROM s pain, No edema, No calf tenderness / cord - Neuro Neuro: Alert and oriented X 3, raw hide trimmer 2-12 intact, No motor deficit, No sensory deficit, Normal speech Eye Opening: Spontaneous Motor: Obeys Commands Verbal: Oriented GCS Score: 15 - Psych Psych: Normal mood, Normal affect Results - Vitals Vitals: Vital Signs - 24 hr 05/24/19 05/24/19 05/24/19 10:51 13:38 16:30 Temperature 36.5 C 36.9 C 37.2 C Heart Rate 90 92 78 Respiratory 14 18 18 Rate Blood Pressure 136/100 H 136/85 H 112/77 O2 Saturation 100 98 97 Oxygen O2 Source Room air - Labs Labs: Laboratory Tests 05/24/19 05/24/19 05/24/19 12:52 12:52 16:38 WBC 14.9 H RBC 6.38 H Hgb 19.9 H Hct 57.2 H MCV 89.7 MCH 31.2 H MCHC 34.8 RDW 12.5 Plt Count 254 MPV 9.1 Neut # (Auto) 13.0 H Lymph # (Auto) 1.2 L [place] # (Auto) 0.6 Eos # (Auto) 0.0 Baso # (Auto) 0.0 Absolute Nucleated RBC 0.04 Nucleated RBC % 0.3 Sodium 133 L Potassium 4.4 Chloride 94 L Carbon Dioxide 28 Anion Gap 11.0 BUN 48 H Creatinine 1.6 H Estimated GFR (MDRD) 50 L Glucose 147 H Calcium 10.7 H Total Bilirubin 2.6 H AST 18 ALT 17 Alkaline Phosphatase 82 Total Protein 9.1 H Albumin 5.4 Globulin 3.7 Albumin/Globulin Ratio 1.5 Lipase 25 Urine Color YELLOW Urine Clarity CLEAR Urine pH 6.0 Ur Specific [place] 1.020 Urine Protein TRACE Urine Glucose (UA) NEGATIVE Urine Ketones NEGATIVE Urine Occult Blood NEGATIVE Urine Nitrite NEGATIVE Urine Bilirubin NEGATIVE Urine Urobilinogen 0.2 (NORMAL) Ur Leukocyte Esterase NEGATIVE Ur Microscopic Review NOT INDICATED Urine Culture Comments NOT INDICATED PD MEDICAL DECISION MAKING - ED course Complexity details: reviewed old records, reviewed results, re-evaluated patient, considered differential, d/w patient, d/w family ED course: 33 y/o male with acute gastroenteritis is profoundly dehydrated and IV saline is begun. The patient has marked improvement with 2 L of saline and 4 mg of Zofran intravenously. Departure - Departure Disposition: 01 Home, Self Care Clinical Impression: Dehydration, Gastroenteritis Condition: Stable Instructions: ED Dehydration, ED Gastroenteritis Viral Follow-Up: Sunday Avila PA-C [Primary Care Provider] - Prescriptions: Ondansetron Odt [Zofran] 4 mg TL Q6H PRN #10 tablet PRN Reason: Nausea / Vomiting
[2019-05-24 16:31] VITALS: BP 112/77
[2019-05-24 16:49] LABS: BILIRUBIN,URINE NEGATIVE (NEGATIVE); GLUCOSE, URINE (UA) NEGATIVE (NEGATIVE); KETONES,URINE (UA) NEGATIVE (NEGATIVE); LEUKOCYTE ESTERASE, URINE NEGATIVE (NEGATIVE); NITRITE,URINE NEGATIVE (NEGATIVE); OCCULT BLOOD,URINE NEGATIVE (NEGATIVE); PROTEIN,URINE TRACE mg/dL (NEGATIVE); UROBILINOGEN,URINE 0.2 (NORMAL) E.U./dL (NORMAL)
[2019-05-24 16:53] LABS: CLARITY,URINE CLEAR (CLEAR)
== END 2019-05-24 17:39 | disposition home or self-care (01) ==
LOC: ED 10:37
DX: K52.9 Noninfective gastroenteritis and colitis, unspecified (principal); E86.0 Dehydration; K21.9 Gastro-esophageal reflux disease without esophagitis; K51.90 Ulcerative colitis, unspecified, without complications; F17.200 Nicotine dependence, unspecified, uncomplicated
CPT/HCPCS: 36415; 80053; 81001; 81003; 83690; 85025; 87086; 96361; 96374; 99284

== ENCOUNTER 2019-09-22 23:00 | Emergency (ER) | payer MEDICAID ==
--- NOTE | 2019-09-22 23:24 | ED Physician Documentation ---
History of Present Illness - Stated complaint Stated Complaint: VOMITING/ABD & BACK PX - Chief complaint Chief Complaint: Abd Pain - History obtained from History obtained from: Patient (Patient is a 34-year-old male presents with a 2- day history of vomiting without abdominal pain. The patient also reports that his kidneys hurt. He denies any hematemesis or fever or syncopal episodes denies any abdominal pain currently.), Other (Patient states that he is dehydrated.) Review of Systems Constitutional: reports: Reviewed and negative Eyes: reports: Reviewed and negative Ears: reports: Reviewed and negative Nose: reports: Reviewed and negative Throat: reports: Reviewed and negative Cardiac: reports: Reviewed and negative Respiratory: reports: Reviewed and negative GI: reports: Nausea, Vomiting : reports: Reviewed and negative Skin: reports: Reviewed and negative Musculoskeletal: reports: Reviewed and negative Neurologic: reports: Reviewed and negative Psychiatric: reports: Reviewed and negative Endocrine: reports: Reviewed and negative Immunocompromised: reports: Reviewed and negative PD PAST MEDICAL HISTORY - Past Medical History Cardiovascular: None Respiratory: None Neuro: None Endocrine/Autoimmune: None GI: GERD, Ulcerative colitis, Other : None HEENT: None Psych: None Musculoskeletal: None Derm: None - Past Surgical History Past Surgical History: Yes HEENT: Tonsil/Adenoidectomy - Present Medications Home Medications: Ambulatory Orders Medication Instructions Recorded Confirmed Famotidine [Pepcid] 20 mg PO BID #30 tablet 10/15/17 11/14/17 Ciprofloxacin HCl [Cipro] 500 mg ORAL BID 11/14/17 11/14/17 Ondansetron [Ondansetron Odt] 8 mg ORAL Q8H PRN 11/14/17 11/14/17 Sucralfate 1 g ORAL QID 11/14/17 11/14/17 Hydrocodone/Acetaminophen 1 - 2 each PO Q6H PRN #14 tablet 12/20/17 [Hydrocodon-Acetaminophen 5-325] Hyoscyamine Sulfate [Levsin-Sl] 0.125 mg SL Q6H PRN #10 tab.subl 12/20/17 Promethazine [Phenergan] 25 mg PO Q6H PRN #10 tab 12/20/17 Ondansetron Odt [Zofran] 4 mg TL Q6H PRN #20 tablet 04/21/18 Ondansetron Odt [Zofran] 4 mg TL Q6H PRN #10 tablet 05/24/19 Ondansetron Odt [Zofran Odt] 4 mg TL Q6H PRN #10 tablet 09/23/19 - Allergies Allergies/Adverse Reactions: Allergies Allergy/AdvReac Type Severity Reaction Status Date / Time bee venom protein (honey bee) Allergy Anaphylaxis Verified 04/21/18 15:16 - Social History Does the pt smoke?: Yes Smoking Status: Current every day smoker Does the pt drink ETOH?: No Does the pt have substance abuse?: No - Immunizations Immunizations are current?: Yes - POLST Patient has POLST: No PD ED PE NORMAL - Vitals Vital signs reviewed: Yes - General General: Alert and oriented X 3, No acute distress, Well developed/nourished - HEENT HEENT: PERRL - Neck Neck: Supple, no meningeal sign, No adenopathy, No JVD, No bruit - Cardiac Cardiac: RRR, No murmur, Strong equal pulses - Respiratory Respiratory: No respiratory distress, Clear bilaterally - Abdomen Abdomen: Normal bowel sounds, Soft, Non tender, Non distended, No organomegaly - Derm Derm: Warm and dry - Extremities Extremities: No deformity, No tenderness to palpate, Normal ROM s pain, No edema, No calf tenderness / cord - Neuro Neuro: Alert and oriented X 3, glass breaker 2-12 intact, No motor deficit, No sensory deficit, Normal speech - Psych Psych: Normal mood, Normal affect Results - Vitals Vitals: Vital Signs - 24 hr 09/22/19 09/22/19 09/23/19 23:03 23:26 01:05 Temperature 96.8 C H Heart Rate 61 57 L 52 L Respiratory 18 15 14 Rate Blood Pressure 107/82 H 133/84 H 116/70 O2 Saturation 97 100 98 Oxygen O2 Source Room air - Labs Labs: Laboratory Tests 09/22/19 09/22/19 23:30 23:30 WBC 16.8 H RBC 5.69 Hgb 18.1 H Hct 53.6 H MCV 94.2 H MCH 31.8 H MCHC 33.8 RDW 11.9 L Plt Count 237 MPV 9.2 Neut # (Auto) 14.4 H Lymph # (Auto) 1.6 [place] # (Auto) 0.7 Eos # (Auto) 0.0 Baso # (Auto) 0.1 Absolute Nucleated RBC 0.00 Nucleated RBC % 0.0 Sodium 140 Potassium 3.8 Chloride 104 Carbon Dioxide 24 Anion Gap 12.0 BUN 25 H Creatinine 1.1 Estimated GFR (MDRD) 76 L Glucose 149 H Calcium 9.5 Total Bilirubin 2.3 H AST 19 ALT 17 Alkaline Phosphatase 86 Total Protein 7.6 Albumin 5.0 Globulin 2.6 Albumin/Globulin Ratio 1.9 Lipase 30 PD MEDICAL DECISION MAKING - ED course Complexity details: reviewed results, re-evaluated patient, considered differential (Gastroenteritis, Dehydration, reviewing his previous medical records also in the differential is polycythemia vera.), d/w patient, d/w family, other (Patient treated with 2 L of IV fluids and IV and antiemetics with Phenergan and Zofran his symptoms have resolved he is tolerated p.o. challenge and requesting to be discharged home at this time.) Departure - Departure Disposition: 01 Home, Self Care Clinical Impression: Polycythemia vera, Dehydration Vomiting Qualifiers: Vomiting type: unspecified Vomiting Intractability: unspecified Nausea presence: unspecified Qualified Code(s): R11.10 - Vomiting, unspecified Condition: Stable Instructions: ED Dehydration Follow-Up: Bear Villanueva MD [Provider Admit Priv/Credential] - 09/23/19 Prescriptions: Ondansetron Odt [Zofran Odt] 4 mg TL Q6H PRN #10 tablet PRN Reason: Nausea / Vomiting Comments: Establish care with a primary care provider and follow-up today. Hydrate well take Zofran as needed for nausea and vomiting. Patient education: Polycythemia vera (PV) (The Basics) View in [place]ian Written by the doctors and editors at [facility] What is polycythemia vera (PV)? Polycythemia vera (also called "PV") is a condition that affects bone marrow. Bone marrow is the tissue in the center of your bones that makes blood cells. People with PV make too many red blood cells (the cells that carry oxygen to your body). They might also have [id number] levels of: ? White blood cells These cells fight infections. ? Platelets Platelets help clots form so that you stop bleeding after you are cut or injured. What are the symptoms of PV? People with PV might: ? Have headaches ? Feel weak or dizzy ? Sweat a lot ? Feel very itchy, especially when rubbing their skin after a warm bath or shower ? Have painful, swollen joints, especially in the big toe, ankle, or knee (called "gout") ? Have burning pain in the hands and feet, which can also turn red, white, or blue ? Have dangerous blood clots ? Have vision problems, such as seeing dark spots, pickering, or flashes ? Have stomach problems, such as pain in the upper belly Are there tests for PV? Yes. Your doctor or nurse will do an exam and order different blood tests. You might also need a bone marrow biopsy. For this test, a doctor takes a very small sample of your bone marrow. Then another doctor looks at the cells under a microscope. How is PV treated? Treatments include: ? Removing blood from your body (called "phlebotomy") This is similar to what happens if you give blood. ? Low-dose aspirin This helps prevent blood clots. ? Medicines to keep your bone marrow from making too many red blood cells These include hydroxyurea (brand names: Droxia, Hydrea), interferon dino (brand name: Intron A), and busulfan (brand name: Myleran, Busulfex). Your doctor might also prescribe medicines or other treatments to ease itching. What else should I do? It's important to follow all of your doctor's instructions about visits and tests. It's also important to talk to your doctor about any side effects or problems you have during treatment. Getting treated for PV involves making many choices, such as what treatment to have and when. Always let your doctors and nurses know how you feel about a treatment. Any time you are offered a treatment, ask: ? What are the benefits of this treatment? Is it likely to help me live longer? Will it reduce or prevent symptoms? ? What are the downsides to this treatment? ? Are there other options besides this treatment? ? What happens if I do not have this treatment? Discharge Date/Time: 09/23/19 02:27
[2019-09-22 23:43] LABS: BASOPHILS # (AUTO) 0.1 10^3/uL (0.0-0.1); BASOPHILS % (AUTO) 0.4 %; EOSINOPHILS % (AUTO) 0.2 %; HGB - HEMOGLOBIN 18.1 g/dL (14.0-18.0); LYMPHOCYTES # (AUTO) 1.6 10^3/uL (1.5-3.5); LYMPHOCYTES % (AUTO) 9.4 %; MEAN CORPUSCULAR HEMOGLOBIN 31.8 pg (27.0-31.0); MEAN CORPUSCULAR HGB CONC 33.8 g/dL (32.0-36.0); MEAN CORPUSCULAR VOLUME 94.2 fL (80.0-94.0); MEAN PLATELET VOLUME 9.2 fL (7.4-11.4); MONOCYTES # (AUTO) 0.7 10^3/uL (0.0-1.0); MONOCYTES % (AUTO) 3.9 %; NEUTROPHILS # (AUTO) 14.4 10^3/uL (1.5-6.6); NEUTROPHILS % (AUTO) 85.6 %; PLT - PLATELET COUNT 237 10^3/uL (130-450); RED BLOOD COUNT 5.69 10^6/uL (4.70-6.10); RED CELL DISTRIBUTION WIDTH 11.9 % (12.0-15.0); WHITE BLOOD COUNT 16.8 x10^3/uL (4.8-10.8)
[2019-09-22] MEDS ORDERED: SODIUM CHLORIDE 0.9% 1,000 ML IV STA (23:45)
[2019-09-22] MEDS ORDERED: PROMETHAZINE INJ 25 MG in SODIUM CHLORIDE 0.9% 50 ML IV STA (23:45)
[2019-09-22 23:53] LABS: ALBUMIN/GLOBULIN RATIO 1.9 (1.0-2.2); BILIRUBIN,TOTAL 2.3 mg/dL (0.2-1.0); CALCIUM 9.5 mg/dL (8.5-10.3); CREATININE 1.1 mg/dL (0.6-1.2); TOTAL PROTEIN 7.6 g/dL (6.7-8.2)
[2019-09-23] MEDS ORDERED: ONDANSETRON 4 MG/2 ML VIAL IVP STA ×2 (00:29→02:02)
[2019-09-23] MEDS ORDERED: SODIUM CHLORIDE 0.9% 1,000 ML IV STA (01:13)
[2019-09-23 01:14] VITALS: BP 116/70
== END 2019-09-23 02:27 | disposition home or self-care (01) ==
LOC: ED 23:00
DX: E86.0 Dehydration (principal); R11.2 Nausea with vomiting, unspecified; D45 Polycythemia vera; F17.200 Nicotine dependence, unspecified, uncomplicated
CPT/HCPCS: 36415; 80053; 83690; 85025; 96361; 96365; 96375; 96376; 99283; 99284; J7040

== ENCOUNTER 2019-09-30 20:43 | Emergency (ER) | payer MEDICAID ==
--- NOTE | 2019-09-30 21:05 | ED Physician Documentation ---
PD HPI NVD - Stated complaint Stated Complaint: VOMITING, ABD PAIN - Chief complaint Chief Complaint: Abd Pain - History obtained from History obtained from: Patient - History of Present Illness Timing - onset: How many days ago (2-3) Timing - duration: Days Timing - details: Gradual onset Associated symptoms: Abdominal pain (episodic (not having pain at present)). No: Fever Improved by: Other (no ameliorating factors) Worsened by: Other (nothing) Recently seen: Emergency Dept (T+R 09/28 for same symptoms) - Additonal information Additional information: c/o nausea and vomiting that is unrelieved with prescription antinauseants at home. Also c/o episodic epigastric pain although not having pain at this time. He was T+R from this ED 09/21 for same symptoms; he says he has been working outdoors and sweating due to the strenuous work and hot weather, and he feels this caused him to become dehydrated and cause the recurrence of his symptoms Review of Systems Constitutional: reports: Fatigue. denies: Fever, Chills, Sweats Cardiac: reports: Reviewed and negative Respiratory: reports: Reviewed and negative GI: reports: Abdominal Pain, Nausea, Vomiting. denies: Abdominal Swelling, Constipation, Diarrhea : denies: Dysuria, Frequency Musculoskeletal: reports: Reviewed and negative Neurologic: reports: Reviewed and negative PD PAST MEDICAL HISTORY - Past Medical History Cardiovascular: None Respiratory: None Neuro: None Endocrine/Autoimmune: None GI: GERD, Ulcerative colitis, Other : None HEENT: None Psych: None Musculoskeletal: None Derm: None - Past Surgical History Past Surgical History: Yes HEENT: Tonsil/Adenoidectomy - Present Medications Home Medications: Ambulatory Orders Medication Instructions Recorded Confirmed Famotidine [Pepcid] 20 mg PO BID #30 tablet 10/15/17 11/14/17 Ciprofloxacin HCl [Cipro] 500 mg ORAL BID 11/14/17 11/14/17 Ondansetron [Ondansetron Odt] 8 mg ORAL Q8H PRN 11/14/17 11/14/17 Sucralfate 1 g ORAL QID 11/14/17 11/14/17 Hydrocodone/Acetaminophen 1 - 2 each PO Q6H PRN #14 tablet 12/20/17 [Hydrocodon-Acetaminophen 5-325] Hyoscyamine Sulfate [Levsin-Sl] 0.125 mg SL Q6H PRN #10 tab.subl 12/20/17 Promethazine [Phenergan] 25 mg PO Q6H PRN #10 tab 12/20/17 Ondansetron Odt [Zofran] 4 mg TL Q6H PRN #20 tablet 04/21/18 Ondansetron Odt [Zofran] 4 mg TL Q6H PRN #10 tablet 05/24/19 Ondansetron Odt [Zofran Odt] 4 mg TL Q6H PRN #10 tablet 09/23/19 Ondansetron Odt [Zofran] 4 mg TL Q6H PRN #10 tablet 09/30/19 Promethazine [Phenergan] 25 mg PO Q6H PRN #10 tab 09/30/19 - Allergies Allergies/Adverse Reactions: Allergies Allergy/AdvReac Type Severity Reaction Status Date / Time bee venom protein (honey bee) Allergy Anaphylaxis Verified 09/30/19 20:52 - Social History Does the pt smoke?: Yes Smoking Status: Current every day smoker Does the pt drink ETOH?: No Does the pt have substance abuse?: No - Immunizations Immunizations are current?: Yes - POLST Patient has POLST: No PD ED PE NORMAL - Vitals Vital signs reviewed: Yes - General General: Alert and oriented X 3, No acute distress, Well developed/nourished - HEENT HEENT: Other (tacky/pasty mucous membranes) - Neck Neck: Supple, no meningeal sign - Cardiac Cardiac: RRR, No murmur - Respiratory Respiratory: No respiratory distress, Clear bilaterally - Abdomen Abdomen: Normal bowel sounds, Soft, Non tender, Non distended - Back Back: No CVA TTP - Derm Derm: Normal color, Warm and dry, No rash Results - Vitals Vitals: Vital Signs - 24 hr 09/30/19 09/30/19 09/30/19 20:48 22:36 22:59 Temperature 36.4 C L Heart Rate 68 59 L 58 L Respiratory 16 14 16 Rate Blood Pressure 128/66 118/69 118/69 O2 Saturation 100 98 100 Oxygen O2 Source Room air - Labs Labs: Laboratory Tests 09/30/19 09/30/19 09/30/19 21:04 21:04 21:04 WBC 14.0 H RBC 5.56 Hgb 17.4 Hct 50.4 MCV 90.6 MCH 31.3 H MCHC 34.5 RDW 11.9 L Plt Count 250 MPV 9.5 Neut # (Auto) 11.9 H Lymph # (Auto) 1.3 L [place] # (Auto) 0.7 Eos # (Auto) 0.0 Baso # (Auto) 0.0 Absolute Nucleated RBC 0.00 Nucleated RBC % 0.0 Sodium 140 Potassium 3.6 Chloride 102 Carbon Dioxide 30 Anion Gap 8.0 BUN 15 Creatinine 1.0 Estimated GFR (MDRD) 85 L Glucose 136 H Calcium 9.1 Total Bilirubin 2.2 H AST 16 ALT 15 Alkaline Phosphatase 75 Total Protein 7.3 Albumin 4.9 Globulin 2.4 Albumin/Globulin Ratio 2.0 Lipase 49 Urine Color YELLOW Urine Clarity CLEAR Urine pH 6.0 Ur Specific [place] >=1.030 H Urine Protein TRACE Urine Glucose (UA) NEGATIVE Urine Ketones 15 H Urine Occult Blood NEGATIVE Urine Nitrite NEGATIVE Urine Bilirubin NEGATIVE Urine Urobilinogen 0.2 (NORMAL) Ur Leukocyte Esterase NEGATIVE Ur Microscopic Review NOT INDICATED Urine Culture Comments NOT INDICATED PD MEDICAL DECISION MAKING - ED course Complexity details: reviewed old records, reviewed results, re-evaluated patient, considered differential, d/w patient Departure - Departure Disposition: 01 Home, Self Care Clinical Impression: Vomiting Qualifiers: Vomiting type: unspecified Vomiting Intractability: non-intractable Nausea presence: with nausea Qualified Code(s): R11.2 - Nausea with vomiting, unspecified Condition: Good Instructions: ED Nausea Vomiting Prescriptions: Promethazine [Phenergan] 25 mg PO Q6H PRN #10 tab PRN Reason: Nausea / Vomiting Ondansetron Odt [Zofran] 4 mg TL Q6H PRN #10 tablet PRN Reason: Nausea / Vomiting Discharge Date/Time: 09/30/19 23:40
[2019-09-30 21:14] LABS: BASOPHILS % (AUTO) 0.1 %; BILIRUBIN,URINE NEGATIVE (NEGATIVE); EOSINOPHILS % (AUTO) 0.1 %; GLUCOSE, URINE (UA) NEGATIVE (NEGATIVE); HGB - HEMOGLOBIN 17.4 g/dL (14.0-18.0); KETONES,URINE (UA) 15 mg/dL (NEGATIVE); LEUKOCYTE ESTERASE, URINE NEGATIVE (NEGATIVE); LYMPHOCYTES # (AUTO) 1.3 10^3/uL (1.5-3.5); MEAN CORPUSCULAR HEMOGLOBIN 31.3 pg (27.0-31.0); MEAN CORPUSCULAR HGB CONC 34.5 g/dL (32.0-36.0); MEAN CORPUSCULAR VOLUME 90.6 fL (80.0-94.0); MEAN PLATELET VOLUME 9.5 fL (7.4-11.4); MONOCYTES # (AUTO) 0.7 10^3/uL (0.0-1.0); MONOCYTES % (AUTO) 4.8 %; NEUTROPHILS # (AUTO) 11.9 10^3/uL (1.5-6.6); NEUTROPHILS % (AUTO) 85.6 %; NITRITE,URINE NEGATIVE (NEGATIVE); OCCULT BLOOD,URINE NEGATIVE (NEGATIVE); PLT - PLATELET COUNT 250 10^3/uL (130-450); PROTEIN,URINE TRACE mg/dL (NEGATIVE); RED BLOOD COUNT 5.56 10^6/uL (4.70-6.10); RED CELL DISTRIBUTION WIDTH 11.9 % (12.0-15.0); UROBILINOGEN,URINE 0.2 (NORMAL) E.U./dL (NORMAL)
[2019-09-30 21:15] LABS: CLARITY,URINE CLEAR (CLEAR)
[2019-09-30 21:24] LABS: ALBUMIN 4.9 g/dL (3.2-5.5); BILIRUBIN,TOTAL 2.2 mg/dL (0.2-1.0); CALCIUM 9.1 mg/dL (8.5-10.3); TOTAL PROTEIN 7.3 g/dL (6.7-8.2)
[2019-09-30] MEDS ORDERED: ONDANSETRON 4 MG/2 ML VIAL IVP STA (21:24)
[2019-09-30] MEDS ORDERED: SODIUM CHLORIDE 0.9% 1,000 ML IV STA ×2 (21:24→22:13)
[2019-09-30 22:37] VITALS: BP 118/69
== END 2019-09-30 23:40 | disposition home or self-care (01) ==
LOC: ED 20:43
DX: R11.2 Nausea with vomiting, unspecified (principal); Z87.19 Personal history of other diseases of the digestive system; F17.200 Nicotine dependence, unspecified, uncomplicated
CPT/HCPCS: 36415; 80053; 81001; 81003; 83690; 85025; 87086; 96361; 96374; 99284

== ENCOUNTER 2021-03-19 09:26 | Emergency (ER) | payer MEDICAID ==
[2021-03-19 10:06] LABS: BASOPHILS % (AUTO) 0.3 %; EOSINOPHILS % (AUTO) 0.2 %; HCT - HEMATOCRIT 49.8 % (42.0-52.0); HGB - HEMOGLOBIN 16.7 g/dL (14.0-18.0); LYMPHOCYTES # (AUTO) 1.3 10^3/uL (1.5-3.5); LYMPHOCYTES % (AUTO) 8.9 %; MEAN CORPUSCULAR HEMOGLOBIN 30.5 pg (27.0-31.0); MEAN CORPUSCULAR HGB CONC 33.5 g/dL (32.0-36.0); MEAN CORPUSCULAR VOLUME 90.9 fL (80.0-94.0); MEAN PLATELET VOLUME 9.3 fL (7.4-11.4); MONOCYTES # (AUTO) 0.6 10^3/uL (0.0-1.0); MONOCYTES % (AUTO) 4.3 %; NEUTROPHILS # (AUTO) 12.7 10^3/uL (1.5-6.6); NEUTROPHILS % (AUTO) 85.8 %; PLT - PLATELET COUNT 235 10^3/uL (130-450); RED BLOOD COUNT 5.48 10^6/uL (4.70-6.10); RED CELL DISTRIBUTION WIDTH 12.2 % (12.0-15.0); WHITE BLOOD COUNT 14.8 x10^3/uL (4.8-10.8)
--- NOTE | 2021-03-19 10:11 | ED Physician Documentation ---
PD HPI NVD - Stated complaint Stated Complaint: NAUSEA - Chief complaint Chief Complaint: Abd Pain - History obtained from History obtained from: Patient - History of Present Illness Timing - onset: How many weeks ago (1) Timing - duration: Weeks (1) Timing - details: Abrupt onset, Still present Associated symptoms: Abdominal pain (cramping intermittent), Loss of appetite, Weight loss (he states 20 lb weight loss in the past week.). No: Fever, Chest pain, Near syncope / syncope Contributing factors: No: Sick contact, Bad food, Travel Improved by: No: Vomiting Worsened by: Eating Similar symptoms before: No diagnosis (has had similar episodes in the past. He states prior CTs the past 1-2 years and recent eval GI with upper/lower scopes in past few months. He states he has been treated for H. Pylori last year and did some better after that.) Review of Systems Constitutional: denies: Fever, Chills Nose: denies: Rhinorrhea / runny nose, Congestion Throat: denies: Sore throat Cardiac: denies: Chest pain / pressure Respiratory: denies: Dyspnea, Cough GI: reports: Nausea, Vomiting, Diarrhea (states loose to watery without blood nor mucous. No melena.). denies: Abdominal Pain, Constipation, Hematemesis Skin: denies: Rash, Lesions PD PAST MEDICAL HISTORY - Past Medical History Cardiovascular: None Respiratory: None Neuro: None Endocrine/Autoimmune: None GI: GERD, Ulcerative colitis, Other : None HEENT: None Psych: None Musculoskeletal: None Derm: None - Past Surgical History Past Surgical History: Yes HEENT: Tonsil/Adenoidectomy - Present Medications Home Medications: Ambulatory Orders Medication Instructions Recorded Confirmed Famotidine [Pepcid] 20 mg PO DAILY #20 tablet 03/19/21 Promethazine [Phenergan] 25 mg PO Q6H PRN #20 tab 03/19/21 - Allergies Allergies/Adverse Reactions: Allergies Allergy/AdvReac Type Severity Reaction Status Date / Time bee venom protein (honey bee) Allergy Anaphylaxis Verified 03/19/21 09:38 - Social History Does the pt smoke?: Yes Smoking Status: Current every day smoker Does the pt drink ETOH?: No Does the pt have substance abuse?: No - Immunizations Immunizations are current?: Yes - POLST Patient has POLST: No PD ED PE NORMAL - Vitals Vital signs reviewed: Yes - General General: Alert and oriented X 3, Well developed/nourished, Other (appears uncomrotable and holding emesis bag. ) - HEENT HEENT: Pharynx benign. No: Moist mucous membranes - Neck Neck: Supple, no meningeal sign, No adenopathy - Cardiac Cardiac: RRR, No murmur - Respiratory Respiratory: Clear bilaterally - Abdomen Abdomen: Normal bowel sounds, Soft, Non distended, No organomegaly, Other (tender upper abd to epigastric area. ) - Male Male : Deferred - Rectal Rectal: Deferred - Back Back: No CVA TTP - Derm Derm: Normal color, Warm and dry - Extremities Extremities: Normal ROM s pain, No edema, No calf tenderness / cord - Neuro Neuro: Alert and oriented X 3, No motor deficit, Normal speech Results - Vitals Vitals: Vital Signs - 24 hr 03/19/21 03/19/21 03/19/21 09:39 10:54 13:42 Temperature 36.8 C Heart Rate 58 L 56 L 84 Respiratory 18 18 14 Rate Blood Pressure 142/89 H 162/85 H 133/82 H O2 Saturation 100 100 97 03/19/21 03/19/21 14:00 15:31 Temperature Heart Rate 64 64 Respiratory 16 18 Rate Blood Pressure 133/82 H 123/65 O2 Saturation 100 98 Oxygen O2 Source Room air - Labs Labs: Laboratory Tests 03/19/21 03/19/21 03/19/21 09:56 09:56 12:12 WBC 14.8 H RBC 5.48 Hgb 16.7 Hct 49.8 MCV 90.9 MCH 30.5 MCHC 33.5 RDW 12.2 Plt Count 235 MPV 9.3 Neut # (Auto) 12.7 H Lymph # (Auto) 1.3 L [place] # (Auto) 0.6 Eos # (Auto) 0.0 Baso # (Auto) 0.0 Absolute Nucleated RBC 0.00 Nucleated RBC % 0.0 Sodium 143 Potassium 3.8 Chloride 103 Carbon Dioxide 27 Anion Gap 13.0 BUN 22 H Creatinine 1.0 Estimated GFR (MDRD) 85 L Glucose 136 H Calcium 9.6 Total Bilirubin 2.4 H AST 15 ALT 11 Alkaline Phosphatase 78 Total Protein 7.6 Albumin 5.0 Globulin 2.6 Albumin/Globulin Ratio 1.9 Lipase 27 Urine Color DARK YELLOW Urine Clarity HAZY Urine pH 5.5 Ur Specific [place] >=1.030 H Urine Protein TRACE Urine Glucose (UA) NEGATIVE Urine Ketones 40 H Urine Occult Blood NEGATIVE Urine Nitrite NEGATIVE Urine Bilirubin NEGATIVE Urine Urobilinogen 0.2 (NORMAL) Ur Leukocyte Esterase NEGATIVE Urine RBC 0-5 Urine WBC 0-3 Ur Squamous Epith Cells NONE SEEN Amorphous Sediment Rare Urine Bacteria Rare Urine Mucus Moderate Strands Ur Microscopic Review INDICATED Urine Culture Comments NOT INDICATED PD MEDICAL DECISION MAKING - ED course Complexity details: reviewed results (lytes and CBC are good. He reports several prior CTs past 1-2 years and also EGD/colonoscopy in past few months. I did not feel imaging would be useful here. ), re-evaluated patient (improved symptoms after few doses of meds, and he is taking sips fluids and feels able to try home. ), considered differential (gastritis but with diarrhea too, so consider UC/Crohns but would have likely had Dx from recent endoscopies. Not diabetic. Consider hyperemesis. ), d/w patient Departure - Departure Disposition: Home, Self Care Clinical Impression: Nausea vomiting and diarrhea Condition: Stable Record reviewed to determine appropriate education?: Yes Instructions: ED Diet Vomiting Diarrhea Prescriptions: Famotidine [Pepcid] 20 mg PO DAILY #20 tablet Promethazine [Phenergan] 25 mg PO Q6H PRN #20 tab PRN Reason: Nausea / Vomiting Comments: Small frequent fluids. Jordan food initially and progress diet as able. Use p romethazine every 6 hours as needed for nausea. Your stomach is likely irritated from the vomiting so famotidine acid reducing medicine twice daily for the next several days to a week and then once daily for another week or so after that. We sent home in a stool collection kit with you. If you persist with the diarrhea, and you can obtain a sample at home and bring it in to your primary care to have it tested for the H. pylori again as well as stool culture and C. difficile as potential causes for your symptoms to exclude those. Recheck if not improved well over the next few days. I transmitted your prescription to [facility] in [place]. Discharge Date/Time: 03/19/21 15:33
[2021-03-19 10:20] LABS: ALBUMIN/GLOBULIN RATIO 1.9 (1.0-2.2); BILIRUBIN,TOTAL 2.4 mg/dL (0.2-1.0); CALCIUM 9.6 mg/dL (8.5-10.3); POTASSIUM 3.8 mmol/L (3.5-5.0); TOTAL PROTEIN 7.6 g/dL (6.7-8.2)
[2021-03-19] MEDS ORDERED: FAMOTIDINE 20 MG/2 ML VIAL IVP STA (10:35)
[2021-03-19] MEDS ORDERED: KETOROLAC 30 MG/ML VIAL IVP STA (10:35)
[2021-03-19] MEDS ORDERED: SODIUM CHLORIDE 0.9% 1,000 ML IV STA ×2 (10:35→10:36)
[2021-03-19] MEDS ORDERED: ONDANSETRON 4 MG/2 ML VIAL IVP STA (10:35)
[2021-03-19 12:25] LABS: GLUCOSE, URINE (UA) NEGATIVE (NEGATIVE); KETONES,URINE (UA) 40 mg/dL (NEGATIVE); LEUKOCYTE ESTERASE, URINE NEGATIVE (NEGATIVE); NITRITE,URINE NEGATIVE (NEGATIVE); OCCULT BLOOD,URINE NEGATIVE (NEGATIVE); PH,URINE 5.5 PH (5.0-7.5); PROTEIN,URINE TRACE mg/dL (NEGATIVE); UROBILINOGEN,URINE 0.2 (NORMAL) E.U./dL (NORMAL)
[2021-03-19 12:38] LABS: AMORPHOUS SEDIMENT,UR Rare /LPF; BACTERIA,URINE Rare /HPF (None Seen); BILIRUBIN,URINE NEGATIVE (NEGATIVE); CLARITY,URINE HAZY (CLEAR); ICTOTEST,URINE NEGATIVE; MUCUS,URINE Moderate Strands; RBC,URINE 0-5 /HPF (0-5); SQUAMOUS EPITHELIAL CELL,UR NONE SEEN (<= Few); WBC,URINE 0-3 /HPF (0-3)
[2021-03-19] MEDS ORDERED: DROPERIDOL 5 MG/2 ML VIAL IVP STA (13:39)
[2021-03-19] MEDS ORDERED: LACTATED RINGERS 1,000 ML IV STA (13:40)
[2021-03-19 15:33] VITALS: BP 123/65
== END 2021-03-19 15:33 | disposition home or self-care (01) ==
LOC: ED 09:26
DX: R11.2 Nausea with vomiting, unspecified (principal); R19.7 Diarrhea, unspecified; R10.13 Epigastric pain; F17.200 Nicotine dependence, unspecified, uncomplicated
CPT/HCPCS: 36415; 80053; 81001; 83690; 85025; 96361; 96374; 96375; 99283; 99285; J7120; 81003; 87086; 87338

== ENCOUNTER 2021-12-30 18:36 | Emergency (ER) | payer MEDICAID ==
[2021-12-30 19:10] LABS: BASOPHILS # (AUTO) 0.1 10^3/uL (0.0-0.1); BASOPHILS % (AUTO) 0.4 %; EOSINOPHILS % (AUTO) 0.2 %; HCT - HEMATOCRIT 58.2 % (42.0-52.0); HGB - HEMOGLOBIN 20.6 g/dL (14.0-18.0); LYMPHOCYTES # (AUTO) 2.5 10^3/uL (1.5-3.5); LYMPHOCYTES % (AUTO) 13.6 %; MEAN CORPUSCULAR HEMOGLOBIN 31.1 pg (27.0-31.0); MEAN CORPUSCULAR HGB CONC 35.4 g/dL (32.0-36.0); MEAN CORPUSCULAR VOLUME 87.9 fL (80.0-94.0); MEAN PLATELET VOLUME 8.7 fL (7.4-11.4); MONOCYTES # (AUTO) 1.1 10^3/uL (0.0-1.0); MONOCYTES % (AUTO) 5.8 %; NEUTROPHILS # (AUTO) 14.4 10^3/uL (1.5-6.6); NEUTROPHILS % (AUTO) 79.5 %; PLT - PLATELET COUNT 356 10^3/uL (130-450); RED BLOOD COUNT 6.62 10^6/uL (4.70-6.10); RED CELL DISTRIBUTION WIDTH 12.2 % (12.0-15.0); WHITE BLOOD COUNT 18.1 x10^3/uL (4.8-10.8)
[2021-12-30 19:23] LABS: ALBUMIN 6.1 g/dL (3.2-5.5); ALBUMIN/GLOBULIN RATIO 1.9 (1.0-2.2); BILIRUBIN,TOTAL 2.9 mg/dL (0.2-1.0); CALCIUM 11.8 mg/dL (8.5-10.3); CREATININE 1.6 mg/dL (0.6-1.2); POTASSIUM 4.1 mmol/L (3.5-5.0); TOTAL PROTEIN 9.3 g/dL (6.7-8.2)
[2021-12-30 19:33] LABS: GLUCOSE, URINE (UA) NEGATIVE (NEGATIVE); KETONES,URINE (UA) 15 mg/dL (NEGATIVE); LEUKOCYTE ESTERASE, URINE NEGATIVE (NEGATIVE); NITRITE,URINE POSITIVE (NEGATIVE); OCCULT BLOOD,URINE TRACE-INTA (NEGATIVE); PROTEIN,URINE >=300 mg/dL (NEGATIVE); UROBILINOGEN,URINE 1 (NORMAL) E.U./dL (NORMAL)
[2021-12-30] MEDS ORDERED: ONDANSETRON 4 MG/2 ML VIAL IVP STA ×2 (19:36→20:28)
[2021-12-30] MEDS ORDERED: SODIUM CHLORIDE 0.9% 1,000 ML IV STA ×3 (19:36→21:34)
[2021-12-30 19:40] LABS: MUDS CUTOFF CONCENTRATIONS CUTOFF CONC BELOW:
[2021-12-30 19:44] LABS: BILIRUBIN,URINE MODERATE (NEGATIVE); CLARITY,URINE CLOUDY (CLEAR); ICTOTEST,URINE POSITIVE
[2021-12-30 19:45] LABS: BACTERIA,URINE Many /HPF (None Seen); CASTS, URINE 11-25 Hyaline Casts /LPF; RBC,URINE 0-5 /HPF (0-5); SQUAMOUS EPITHELIAL CELL,UR FEW Squamous (<= Few)
[2021-12-30 19:51] LABS: AMPHETAMINE SCREEN,URINE NEGATIVE (NEGATIVE); BARBITURATE SCREEN,UR NEGATIVE (NEGATIVE); BENZODIAZEPINES SCREEN, URINE NEGATIVE (NEGATIVE); COCAINE SCREEN URINE NEGATIVE (NEGATIVE); METHADONE SCREEN, URINE NEGATIVE (NEGATIVE); METHAMPHETAMINES SCREEN, URINE POSITIVE (NEGATIVE); OPIATE SCREEN, URINE NEGATIVE (NEGATIVE); OXYCODONE SCREEN, URINE NEGATIVE (NEGATIVE); PROPOXYPHENE SCREEN, URINE NEGATIVE (NEGATIVE); THC CANNABINOID SCREEN, URINE POSITIVE (NEGATIVE); TRICYCLIC ANTIDEPRESSANT,URINE NEGATIVE (NEGATIVE)
--- NOTE | 2021-12-30 20:07 | ED Physician Documentation ---
PD HPI NVD - Stated complaint Stated Complaint: VOMITING - Chief complaint Chief Complaint: Abd Pain - History obtained from History obtained from: Patient - History of Present Illness Timing - onset: How many days ago (2) Pain level max: 0 Pain level now: 0 Associated symptoms: No: Fever, Abdominal pain Improved by: Other (nothing) Worsened by: Eating Similar symptoms before: Has not had sx before Recently seen: Not recently seen - Additonal information Additional information: c/o 2 days of nausea, vomiting, diarrhea. Denies fever, denies abdominal pain. Has been unable to tolerate any PO today including liquids, "I feel super- dehydrated" (per patient). Has been evaluated in this ED before for these symptoms although not frequently Review of Systems Constitutional: denies: Fever, Chills, Sweats Cardiac: reports: Reviewed and negative Respiratory: reports: Reviewed and negative GI: reports: Nausea, Vomiting, Diarrhea. denies: Abdominal Pain, Abdominal Swelling, Hematemesis, Bloody / black stool Musculoskeletal: reports: Reviewed and negative Neurologic: reports: Reviewed and negative PD PAST MEDICAL HISTORY - Past Medical History Past Medical History: Yes Cardiovascular: None Respiratory: None Neuro: None Endocrine/Autoimmune: None GI: GERD, Ulcerative colitis, Other : None HEENT: None Psych: None Musculoskeletal: None Derm: None - Past Surgical History Past Surgical History: Yes HEENT: Tonsil/Adenoidectomy - Present Medications Home Medications: Ambulatory Orders Medication Instructions Recorded Confirmed Promethazine [Phenergan] 25 mg PO Q6H PRN #10 tab 12/30/21 - Allergies Allergies/Adverse Reactions: Allergies Allergy/AdvReac Type Severity Reaction Status Date / Time bee venom protein (honey bee) Allergy Anaphylaxis Verified 12/30/21 18:52 - Social History Does the pt smoke?: Yes Smoking Status: Current every day smoker Does the pt drink ETOH?: No Does the pt have substance abuse?: No - Immunizations Immunizations are current?: Yes - POLST Patient has POLST: No PD ED PE NORMAL - Vitals Vital signs reviewed: Yes - General General: Alert and oriented X 3, No acute distress, Well developed/nourished - HEENT HEENT: Other (dry mucous membranes) - Cardiac Cardiac: No murmur - Respiratory Respiratory: No respiratory distress, Clear bilaterally - Abdomen Abdomen: Normal bowel sounds, Soft, Non tender, Non distended - Derm Derm: Normal color, Warm and dry PD ED PE EXPANDED - Cardiac Cardiac: Tachy, Regular Rhythm Results - Vitals Vitals: Oxygen O2 Source Room air - Labs Labs: Microbiology 12/30/21 19:29 Urine Culture - Final Urine,Clean Catch No growth Laboratory Tests 12/30/21 12/30/21 12/30/21 19:06 19:06 19:29 WBC 18.1 H RBC 6.62 H Hgb 20.6 H Hct 58.2 H MCV 87.9 MCH 31.1 H MCHC 35.4 RDW 12.2 Plt Count 356 MPV 8.7 Neut # (Auto) 14.4 H Lymph # (Auto) 2.5 [place] # (Auto) 1.1 H Eos # (Auto) 0.0 Baso # (Auto) 0.1 Absolute Nucleated RBC 0.00 Nucleated RBC % 0.0 Sodium 139 Potassium 4.1 Chloride 101 Carbon Dioxide 21 Anion Gap 17.0 H BUN 25 H Creatinine 1.6 H Estimated GFR (MDRD) 49 L Glucose 165 H Calcium 11.8 H Total Bilirubin 2.9 H AST 17 ALT 13 Alkaline Phosphatase 94 Total Protein 9.3 H Albumin 6.1 H Globulin 3.2 Albumin/Globulin Ratio 1.9 Lipase 27 Urine Color DARK YELLOW Urine Clarity CLOUDY Urine pH 5.0 Ur Specific [place] >=1.030 H Urine Protein >=300 H Urine Glucose (UA) NEGATIVE Urine Ketones 15 H Urine Occult Blood TRACE-INTA Urine Nitrite POSITIVE H Urine Bilirubin MODERATE H Urine Urobilinogen 1 (NORMAL) Ur Leukocyte Esterase NEGATIVE Urine RBC 0-5 Urine WBC 6-10 H Ur Squamous Epith Cells FEW Squamous Urine Bacteria Many H Urine Casts 11-25 Hyaline Casts Ur Microscopic Review INDICATED Urine Culture Comments INDICATED Urine Opiates Screen Ur Oxycodone Screen Urine Methadone Screen Ur Propoxyphene Screen Ur Barbiturates Screen Ur Tricyclics Screen Ur Phencyclidine Scrn Ur Amphetamine Screen U Methamphetamines Scrn U Benzodiazepines Scrn Urine Cocaine Screen U Cannabinoids Screen 12/30/21 19:29 WBC RBC Hgb Hct MCV MCH MCHC RDW Plt Count MPV Neut # (Auto) Lymph # (Auto) [place] # (Auto) Eos # (Auto) Baso # (Auto) Absolute Nucleated RBC Nucleated RBC % Sodium Potassium Chloride Carbon Dioxide Anion Gap BUN Creatinine Estimated GFR (MDRD) Glucose Calcium Total Bilirubin AST ALT Alkaline Phosphatase Total Protein Albumin Globulin Albumin/Globulin Ratio Lipase Urine Color Urine Clarity Urine pH Ur Specific [place] Urine Protein Urine Glucose (UA) Urine Ketones Urine Occult Blood Urine Nitrite Urine Bilirubin Urine Urobilinogen Ur Leukocyte Esterase Urine RBC Urine WBC Ur Squamous Epith Cells Urine Bacteria Urine Casts Ur Microscopic Review Urine Culture Comments Urine Opiates Screen NEGATIVE Ur Oxycodone Screen NEGATIVE Urine Methadone Screen NEGATIVE Ur Propoxyphene Screen NEGATIVE Ur Barbiturates Screen NEGATIVE Ur Tricyclics Screen NEGATIVE Ur Phencyclidine Scrn NEGATIVE Ur Amphetamine Screen NEGATIVE U Methamphetamines Scrn POSITIVE H U Benzodiazepines Scrn NEGATIVE Urine Cocaine Screen NEGATIVE U Cannabinoids Screen POSITIVE H PD MEDICAL DECISION MAKING - ED course Complexity details: reviewed old records, reviewed results, re-evaluated sebastián t, considered differential, d/w patient ED course: Given 2 liters NS IV, zofran followed by phenergan. On reevaluation after these interventions (and test results returned), he is resting comfortably and reports feeling much improved. Mucous membranes are moist and tachycardia has resolved. We discussed test results, several abnormalities. Leukocytosis (18.1 wbc), high hgb/hct (hgb 20.6), bun 25 , creatinine 1.6. The elevated h/h likely due to hemoconcentration from dehydration, the latter of which is also likely reason for elevated bun/creatinine. Abnormal UA but no UTI symptoms and thus no antibiotic at this time (culture is pending). Elevated bilirubin but normal ast/alt (has had elevated bilirubin many times in the past, tonight's result is only slightly higher than his baseline). I emphasized the need for follow-up with outpatient provider, as he will likely need recheck of his abnormal labs. Return precautions discussed. Patient expresses understanding of, and comfort with, this plan. Departure - Departure Disposition: 01 Home, Self Care Clinical Impression: Dehydration Vomiting Qualifiers: Vomiting type: unspecified Nausea presence: with nausea Qualified Code(s): R11.2 - Nausea with vomiting, unspecified Condition: Good Instructions: ED Dehydration, ED Nausea Vomiting Follow-Up: Arjun Mcqueen MD [Provider Admit Priv/Credential] - Prescriptions: Promethazine [Phenergan] 25 mg PO Q6H PRN #10 tab PRN Reason: Nausea / Vomiting Comments: A prescription for an anti-nausea medication (phenergan) has been electronically submitted to [facility] in [place]. The cause of your symptoms is not apparent at this time. As we discussed, your kidney tests were abnormal tonight, which is very likely a result of being dehydrated. I recommend following up with your primary care provider within a week for reevaluation and likely recheck of your blood tests. Please return to the emergency department if you are unable to keep any fluids down, or if you develop fever (100.4 or higher), worsening abdominal pain, diarrhea, blood in vomit/stool. Discharge Date/Time: 12/30/21 23:19
[2021-12-30] MEDS ORDERED: PROMETHAZINE INJ 25 MG in SODIUM CHLORIDE 0.9% 50 ML IV STA (21:22)
[2021-12-30] MEDS ORDERED: KETOROLAC 15 MG/ML VIAL IVP STA (21:33)
[2021-12-30] MEDS ORDERED: PROMETHAZINE 25 MG/1 ML VIAL ONE (21:49)
[2021-12-30] MEDS ORDERED: ONDANSETRON ODT 4 MG Prepack 2 TL STA (23:08)
[2021-12-30 23:17] VITALS: BP 120/77
== END 2021-12-30 23:19 | disposition home or self-care (01) ==
LOC: ED 18:36
DX: E86.0 Dehydration (principal); R11.2 Nausea with vomiting, unspecified; F17.200 Nicotine dependence, unspecified, uncomplicated
CPT/HCPCS: 36415; 80053; 80306; 81001; 83690; 85025; 87086; 96361; 96365; 96375; 96376; 99283; 99284; J7040; 81003

== ENCOUNTER 2022-10-04 10:59 | Emergency (ER) | payer MEDICAID ==
[2022-10-04] MEDS ORDERED: ONDANSETRON 4 MG/2 ML VIAL IVP STA (11:23)
[2022-10-04] MEDS ORDERED: SODIUM CHLORIDE 0.9% 1,000 ML IV STA ×2 (11:23→11:46)
--- NOTE | 2022-10-04 11:33 | ED Physician Documentation ---
History of Present Illness - Stated complaint Stated Complaint: DEHYDRATION,VOMIT - Chief complaint Chief Complaint: Abd Pain - Additonal information Additional information: 37-year-old male presents emergency department with his for evaluation of several days feeling down and fatigued. Reports he has been only able to lay in bed. Everything his hurt. He has been having some nonbloody diarrhea but this morning had some vomiting. He believes that he may have vomited blood but he did vomit into a red towel. States he saw specks of blood on the bathroom floor. He is a heavy tobacco user but denies alcohol, cannabis or NSAID use. Previosu MUDS however has shown + for cannabis and methamphetamines. No pertinent past surgical history. Denies abdominal pain at this time. Review of Systems Constitutional: denies: Fever Cardiac: reports: Reviewed and negative Respiratory: reports: Reviewed and negative GI: reports: Nausea, Vomiting, Hematemesis. denies: Bloody / black stool : reports: Reviewed and negative Skin: reports: Reviewed and negative PD PAST MEDICAL HISTORY - Past Medical History Cardiovascular: None Respiratory: None Neuro: None Endocrine/Autoimmune: None GI: GERD, Ulcerative colitis, Other : None HEENT: None Psych: None Musculoskeletal: None Derm: None - Past Surgical History Past Surgical History: Yes HEENT: Tonsil/Adenoidectomy - Present Medications Home Medications: Ambulatory Orders Medication Instructions Recorded Confirmed Ondansetron Odt [Zofran] 4 mg TL Q6H PRN #10 tablet 02/21/22 Ondansetron Odt [Zofran] 4 mg TL Q6H PRN #5 tablet 10/04/22 - Allergies Allergies/Adverse Reactions: Allergies Allergy/AdvReac Type Severity Reaction Status Date / Time bee venom protein (honey bee) Allergy Anaphylaxis Verified 10/04/22 11:02 - Social History Does the pt smoke?: Yes Smoking Status: Current every day smoker Does the pt drink ETOH?: No Does the pt have substance abuse?: No - Immunizations Immunizations are current?: Yes - POLST Patient has POLST: No PD ED PE NORMAL - General General: Alert and oriented X 3, No acute distress - HEENT HEENT: PERRL - Neck Neck: Supple, no meningeal sign, No adenopathy - Cardiac Cardiac: RRR, No murmur - Respiratory Respiratory: No respiratory distress, Clear bilaterally - Abdomen Abdomen: Normal bowel sounds, Soft, Non tender (No abdominal tenderness elicited with light or deep palpation or percussion.) - Back Back: No CVA TTP - Derm Derm: Warm and dry - Extremities Extremities: No deformity - Neuro Neuro: Alert and oriented X 3 Eye Opening: Spontaneous Motor: Obeys Commands Verbal: Oriented GCS Score: 15 Results - Vitals Vitals: Vital Signs - 24 hr 10/04/22 11:02 Temperature 36.5 C Heart Rate 90 Respiratory 18 Rate Blood Pressure 136/90 H O2 Saturation 100 Oxygen O2 Source Room air - Labs Labs: Laboratory Tests 10/04/22 10/04/22 11:33 11:33 WBC 15.5 H RBC 6.36 H Hgb 19.6 H Hct 56.6 H MCV 89.0 MCH 30.8 MCHC 34.6 RDW 12.4 Plt Count 324 MPV 8.8 Neut # (Auto) 13.3 H Lymph # (Auto) 1.6 [place] # (Auto) 0.5 Eos # (Auto) 0.0 Baso # (Auto) 0.0 Absolute Nucleated RBC 0.00 Nucleated RBC % 0.0 Sodium 137 Potassium 3.9 Chloride 100 L Carbon Dioxide 23 Anion Gap 14.0 H BUN 39 H Creatinine 1.4 H Estimated GFR (MDRD) 57 L Glucose 158 H Calcium 9.5 Total Bilirubin 3.6 H AST 18 ALT 15 Alkaline Phosphatase 98 Total Protein 8.6 H Albumin 5.1 Globulin 3.5 Albumin/Globulin Ratio 1.5 Lipase 27 PD Medical Decision Making - ED course Complexity details: reviewed results, re-evaluated patient, considered differential, d/w patient, d/w family ED course: 37-year-old male was brought to the emergency department by his for evaluation of several days feeling generally unwell and fatigued with some diarrhea and today he had some vomiting. He did report hematic emesis though this was not well described as he vomited into a red towel. He is a heavy tobacco user. On presentation he is alert and well-appearing. There is no fever, hypotension or tachycardia. His abdominal exam was benign with no tenderness elicited. I did obtain CBC and electrolytes. Per my interpretation he does have a mild leukocytosis with white count of 15,000. Given the lack of fever or abdominal pain I likely feel that this represents stress marginalization as opposed to an infectious etiology. It is noted that he has some polycythemia with hemoglobin of 19.6. And previous ED visits has been as high as 20. This may be reflective of heavy tobacco use though I did discuss with the patient that polycythemia should be monitored in the long-term as it significantly increases his risk for stroke, heart attack and kidney failure. His electrolytes do show an elevated BUN and creatinine of 39 and 1.4. This is within the level that he has been seen with previously for other vomiting and dehydration episodes. We do also note an elevated bilirubin of 3.6 today. No other LFT abnormalities. Again patient is without abdominal tenderness and he is advised to follow closely with a primary care provider his elevated bilirubin. Patient did receive 2 L of IV fluids today in the emergency department as well as a single dose of IV Zofran. A p.o. trial was then attempted but the patient began to dry heave. Following this I gave him a single dose of Inapsine 2.5 mg IV. On reevaluation he is tolerating sips of clear liquids. Given the lack of abdominal pain I have very low suspicion for a surgical etiology such as bowel obstruction or acute appendicitis. Therefore I deferred advanced imaging. He will be discharged home with a prescription for limited amount of Zofran. Advised to establish with and follow closely with the PCP. The usual emergent return precautions for worsening symptoms were discussed. Departure - Departure Disposition: 01 Home, Self Care Clinical Impression: Polycythemia, Acute kidney injury, Dehydration, Elevated bilirubin, Tobacco abuse Nausea and vomiting Qualifiers: Vomiting type: unspecified Qualified Code(s): R11.2 - Nausea with vomiting, unspecified Condition: Stable Record reviewed to determine appropriate education?: Yes Instructions: Hemoglobin, ED Dehydration Prescriptions: Ondansetron Odt [Zofran] 4 mg TL Q6H PRN #5 tablet PRN Reason: Nausea / Vomiting Comments: You are seen today in the emergency department because for the last several days you have been feeling generally unwell and fatigued. You have had some diarrhea and today you began vomiting. Your labs today show that you have an elevated hemoglobin level. In previous ER visits you have also had an elevated hemoglobin level at times. This is a condition called polycythemia. It is seen sometimes in patients who are heavy tobacco users, but can be caused by other factors as well. However it is something in the long-term that can markedly increase your risks of having heart attracts, strokes or developing kidney failure. I encourage you to follow very closely with your primary care doctor. You should stop smoking tobacco as this may help with the polycythemia. In your labs today we do note an elevated BUN and creatinine. These are markers of kidney function. They have been elevated with previous ER visits for todd rn of vomiting and diarrhea. However as you do have polycythemia I feel it is critically important that you follow closely with your primary care doctor to have your BUN and creatinine rechecked next week to make sure that as you are hydration improves your renal function improves. We do also note an elevated bilirubin. There are no other liver function test abnormalities. You have been advised in the past to follow your elevated bilirubin levels with the primary doctor and I am making that recommendation again. We did give you some IV fluids today in the emergency department as well as [facility] called Zofran to help with nausea. I sent a limited prescription of this to the [facility] in [place]. Over the next 24 hours I recommend that you take the Zofran and have frequent sips of clear liquids such as water, broth, Pedialyte or Gatorade. As your nausea and vomiting improves then you can slowly advance your diet to bananas, rice, applesauce and toast. I encourage you also to discuss with your primary care doctor you are concerned that you had vomited some blood. This can be seen in people that vomit forcefully or who are heavy tobacco users but there can always be concerned that you are developing a peptic ulcer disease or gastritis which is only diagnosed through an endoscopy or EGD. If you do not have a primary care doctor you can follow-up at any one of the local walk-in clinics next week to discuss this ED visit and to have your labs rechecked. Return to the ER if you find that your symptoms or not improving, the vomiting does not stop despite use of Zofran, you have any fevers or black or bloody stools.
[2022-10-04 11:38] LABS: BASOPHILS % (AUTO) 0.2 %; EOSINOPHILS % (AUTO) 0.1 %; HCT - HEMATOCRIT 56.6 % (42.0-52.0); HGB - HEMOGLOBIN 19.6 g/dL (14.0-18.0); LYMPHOCYTES # (AUTO) 1.6 10^3/uL (1.5-3.5); LYMPHOCYTES % (AUTO) 10.5 %; MEAN CORPUSCULAR HEMOGLOBIN 30.8 pg (27.0-31.0); MEAN CORPUSCULAR HGB CONC 34.6 g/dL (32.0-36.0); MEAN PLATELET VOLUME 8.8 fL (7.4-11.4); MONOCYTES # (AUTO) 0.5 10^3/uL (0.0-1.0); MONOCYTES % (AUTO) 3.1 %; NEUTROPHILS # (AUTO) 13.3 10^3/uL (1.5-6.6); NEUTROPHILS % (AUTO) 85.8 %; PLT - PLATELET COUNT 324 10^3/uL (130-450); RED BLOOD COUNT 6.36 10^6/uL (4.70-6.10); RED CELL DISTRIBUTION WIDTH 12.4 % (12.0-15.0); WHITE BLOOD COUNT 15.5 x10^3/uL (4.8-10.8)
[2022-10-04 11:51] LABS: ALBUMIN 5.1 g/dL (3.2-5.5); ALBUMIN/GLOBULIN RATIO 1.5 (1.0-2.2); BILIRUBIN,TOTAL 3.6 mg/dL (0.2-1.0); CALCIUM 9.5 mg/dL (8.5-10.3); CREATININE 1.4 mg/dL (0.6-1.2); POTASSIUM 3.9 mmol/L (3.5-5.0); TOTAL PROTEIN 8.6 g/dL (6.7-8.2)
[2022-10-04] MEDS ORDERED: DROPERIDOL 5 MG/2 ML VIAL IVP STA (12:11)
[2022-10-04 13:32] VITALS: BP 149/87
== END 2022-10-04 13:29 | disposition home or self-care (01) ==
LOC: ED 10:59
DX: N17.9 Acute kidney failure, unspecified (principal); E86.0 Dehydration; R82.2 Biliuria; D75.1 Secondary polycythemia; Z72.0 Tobacco use
CPT/HCPCS: 36415; 80053; 83690; 85025; 96361; 96374; 96375; 99284